=== PATIENT | female | born 1930 | race Caucasian/White ===

== ENCOUNTER 2020-07-01 15:03 | Outpatient (CLI) | payer MEDICARE, BC, OTHER | END 2020-07-01 15:04 | disposition critical access hospital (66) | LOC: EMS 15:03 | PROVIDERS: ATTEND Surgery | DX: M25.552 Pain in left hip (principal); R51 Headache; W18.30XA Fall on same level, unspecified, initial encounter; Y92.512 Supermarket, store or market as the place of occurrence of the external cause; R00.1 Bradycardia, unspecified; Z79.01 Long term (current) use of anticoagulants | CPT/HCPCS: A0425; A0427 ==

== ENCOUNTER 2020-07-01 15:20 | Inpatient (IN) | payer MEDICARE, BC, OTHER ==
[2020-07-01] MEDS ORDERED: SODIUM CHLORIDE 0.9% 1,000 ML IV STA (15:31)
--- NOTE | 2020-07-01 15:34 | ED Physician Documentation ---
PD HPI Fall - Stated complaint Stated Complaint: GLF - History obtained from History obtained from: Patient, EMS - History of Present Illness Mechanism of injury: Lost balance, Unknown (she states she was at grocery store and went to the bathroom. Remembers falling back/left and landing onto hip. Struck head but no LOC. She states she felt okay prior without headache, chest pain, lightheaded, nor nausea.) Fall distance: Standing position Where injury occurred: Other (grocery store) Timing - onset: Today (just [employer]) Injury(ies) location: Back (mid thoracic area with some pain), Left Lower Extremity (knee and hip hurt, mostly the hip, with any movement.). No: Head, Neck, Chest, Abdomen Associated symptoms: No: LOC, AMS Worsens with: Movement, Palpation Contributing factors: Anticoagulated. 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 ) Respiratory: None Neuro: None Endocrine/Autoimmune: None - Allergies Allergies/Adverse Reactions: Allergies Allergy/AdvReac Type Severity Reaction Status Date / Time No Known Drug Allergies Allergy Verified 07/01/20 15:30 - Living Situation Living Situation: reports: Alone Living Arrangement: reports: At home - Social History Does the pt smoke?: No Does the pt drink ETOH?: No Does the pt have substance abuse?: No - POLST POLST Status: Full Code PD ED PE NORMAL - Vitals Vital signs reviewed: Yes - General General: Alert and oriented X 3, Well developed/nourished, Other (hurts with attempt movement of left hip. ) - HEENT HEENT: Atraumatic, Pharynx benign - Neck Neck: Supple, no meningeal sign, No bony TTP, No adenopathy - Cardiac Cardiac: RRR, No murmur - Respiratory Respiratory: Clear bilaterally - Abdomen Abdomen: Normal bowel sounds, Soft, Non tender - Back Back: No CVA TTP, Other (some tenderness in mid thoracic area without deformityh.) - Derm Derm: Normal color, Warm and dry - Extremities Extremities: No tenderness to palpate, Normal ROM s pain - Neuro Neuro: Alert and oriented X 3, No motor deficit, Other (left knee with some tenderness anteriorly. No effusion nor deformity. Left hip with tenderness to palpation, and pain with any slight movement of the hip and with slight impaction testing. ) Eye Opening: Spontaneous Motor: Obeys Commands Verbal: Oriented GCS Score: 15 - Psych Psych: Normal mood Results - Vitals Vitals: Vital Signs - 24 hr 07/01/20 07/01/20 07/01/20 15:30 15:34 16:29 Temperature 36.6 C Heart Rate 50 L 45 L 50 L Respiratory 18 18 13 Rate Blood Pressure 115/63 118/72 123/78 O2 Saturation 94 95 95 Oxygen O2 Source Room air - EKG (time done) 16:20 Rate: Rate (enter#) (49) Rhythm: Sinus bradycardia [place]: Normal QRS: Normal Ischemia: Normal ST segments, Non specific changes (laterally). No: ST elevation c/w ischemia, ST depression Compare to prior EKG: Old EKG unavailable - Labs Labs: Laboratory Tests 07/01/20 07/01/20 07/01/20 15:36 15:36 15:36 WBC 6.7 RBC 4.68 Hgb 13.9 Hct 43.4 MCV 92.7 MCH 29.7 MCHC 32.0 RDW 12.9 Plt Count 153 MPV 10.1 Neut # (Auto) 4.5 Lymph # (Auto) 1.5 [place] # (Auto) 0.5 Eos # (Auto) 0.1 Baso # (Auto) 0.0 Absolute Nucleated RBC 0.00 Nucleated RBC % 0.0 PT 43.9 H INR 4.3 H Sodium 134 L Potassium 4.6 Chloride 101 Carbon Dioxide 22 Anion Gap 11.0 BUN 22 H Creatinine 1.2 H Estimated GFR (MDRD) 42 L Glucose 140 H Calcium 9.0 Magnesium 2.3 Total Bilirubin 0.9 AST 33 ALT 28 Alkaline Phosphatase 94 Troponin I High Sens Total Protein 7.3 Albumin 4.4 Globulin 2.9 Albumin/Globulin Ratio 1.5 Lipase 21 L Blood Type Recheck 07/01/20 07/01/20 15:36 15:36 WBC RBC Hgb Hct MCV MCH MCHC RDW Plt Count MPV Neut # (Auto) Lymph # (Auto) [place] # (Auto) Eos # (Auto) Baso # (Auto) Absolute Nucleated RBC Nucleated RBC % PT INR Sodium Potassium Chloride Carbon Dioxide Anion Gap BUN Creatinine Estimated GFR (MDRD) Glucose Calcium Magnesium Total Bilirubin AST ALT Alkaline Phosphatase Troponin I High Sens 3.1 Total Protein Albumin Globulin Albumin/Globulin Ratio Lipase Blood Type Recheck O NEGATIVE - Rads (name of study) head CT Radiology: Prelim report reviewed (no ICH nor acute process), See rad report cervical and thoracic spine Radiology: Prelim report reviewed (no fractures), See rad report left knee xray Radiology: Prelim report reviewed (no fractures) left hip Radiology: Prelim report reviewed (slightly angulated and impacted intertrochanteric hip fracture. ), See rad report PD MEDICAL DECISION MAKING - ED course Complexity details: reviewed results, considered differential (sounds like fall without preceeding symptoms, but still not clear the reason. HR slow but not sure of baseline. BP is okay. Cannot test posturals due to hip fracture. ), d/w patient, d/w hospice care consultant (Ortho and hospitalist) Departure - Departure Disposition: 66 [facility] DC/Xfer Clinical Impression: Anticoagulant long-term use Fall Qualifiers: Encounter type: initial encounter Qualified Code(s): W19.XXXA - Unspecified fall, initial encounter Hip fracture Qualifiers: Encounter type: initial encounter Fracture type: closed Laterality: left Qualified Code(s): S72.002A - Fracture of unspecified part of neck of left femur, initial encounter for closed fracture Condition: Stable Discharge Date/Time: 07/01/20 18:03
[2020-07-01 15:43] LABS: BASOPHILS % (AUTO) 0.6 %; EOSINOPHILS # (AUTO) 0.1 10^3/uL (0.0-0.7); EOSINOPHILS % (AUTO) 1.9 %; HGB - HEMOGLOBIN 13.9 g/dL (12.0-16.0); LYMPHOCYTES # (AUTO) 1.5 10^3/uL (1.5-3.5); LYMPHOCYTES % (AUTO) 21.7 %; MEAN CORPUSCULAR HEMOGLOBIN 29.7 pg (27.0-31.0); MEAN CORPUSCULAR VOLUME 92.7 fL (81.0-99.0); MEAN PLATELET VOLUME 10.1 fL (7.9-10.8); MONOCYTES # (AUTO) 0.5 10^3/uL (0.0-1.0); MONOCYTES % (AUTO) 7.6 %; NEUTROPHILS # (AUTO) 4.5 10^3/uL (1.5-6.6); NEUTROPHILS % (AUTO) 67.6 %; PLT - PLATELET COUNT 153 10^3/uL (130-450); RED BLOOD COUNT 4.68 10^6/uL (4.20-5.40); RED CELL DISTRIBUTION WIDTH 12.9 % (12.0-15.0); WHITE BLOOD COUNT 6.7 x10^3/uL (4.8-10.8)
[2020-07-01] MEDS ORDERED: MORPHINE 2 MG/ML CARPUJECT IVP STA (15:50)
[2020-07-01 15:52] LABS: INR 4.3 (0.8-1.2); PT - PROTHROMBIN TIME 43.9 secs (9.9-12.6)
[2020-07-01 15:55] LABS: ALBUMIN 4.4 g/dL (3.2-5.5); ALBUMIN/GLOBULIN RATIO 1.5 (1.0-2.2); BILIRUBIN,TOTAL 0.9 mg/dL (0.2-1.0); CREATININE 1.2 mg/dL (0.4-1.0); MAGNESIUM 2.3 mg/dL (1.7-2.8); TOTAL PROTEIN 7.3 g/dL (6.7-8.2)
--- NOTE | 2020-07-01 16:14 | CT Report ---
PROCEDURE: HEAD WO INDICATIONS: fall to ground; pain head/neck; on coumadin TECHNIQUE: Noncontrast 4.5 mm thick angled axial sections acquired from the foramen magnum to the vertex. For r adiation dose reduction, the following was used: automated exposure control, adjustment of mA and/or kV according to patient size. COMPARISON: Correlation is made with the accompanying cervical spine CT and thoracic spine CT. FINDINGS: Image quality: Diagnostic, with note made of motion artifact. CSF spaces: Basal cisterns are patent. No extra-axial fluid collections. Ventricles are normal in size and shape. Brain: No midline shift. No intracranial masses or hemorrhage. Arroyo-white matter interface is norm al. Skull and face: Calvarium and visualized facial bones are intact, without suspicious lesions. Hyper ostosis frontalis is incidentally noted, which is not frankly abnormal for a female patient of this a ge. Sinuses: Visualized sinuses and mastoids are clear. Bilateral faisal bullosa are incidentally noted , right larger than left. IMPRESSION: No intracranial hemorrhage is seen. No significant intracranial abnormality is seen. Reviewed by: Ronnie Johnston MD on 07/01/2020 3:13 PM MACHELLE Approved by: Ronnie Johnston MD on 07/01/2020 3:13 PM MACHELLE Station ID: [id number]
--- NOTE | 2020-07-01 16:17 | CT Report ---
PROCEDURE: CERVICAL SPINE WO INDICATIONS: fall to ground; pain head/neck; on coumadin TECHNIQUE: Noncontrast 3 mm thick sections acquired from the skull base to the T4 level. Sagittal and coronal r eformats were then constructed. For radiation dose reduction, the following was used: automated exp osure control, adjustment of mA and/or kV according to patient size. COMPARISON: Correlation is made with the accompanying head CT and thoracic spine CT, 07/01/2020 FINDINGS: Image quality: Excellent. Bones: No fractures or dislocations. Visualized superior ribs are intact. Degenerative changes are seen, with moderate to severe disc space narrowing at the C5-C6 and C6-C7 le vels. There is focal degenerative change involving the C1-C2 interface anteriorly. Milder degenerativ e changes are seen elsewhere. Age-appropriate osteopenia can be seen. Soft tissues: Prevertebral soft tissues are normal in thickness. No paravertebral hematomas. No ap ical pneumothoraces. Atherosclerotic calcification is seen. Minimal opacity can be seen involving th e medial aspect of the right upper lobe anteriorly. IMPRESSION: No displaced fractures are seen. Cervical spine degenerative changes are seen, which are most prominent inferiorly. Likely right upper lobe atelectasis. Differential diagnosis includes minimal infiltrate, however. Reviewed by: Ronnie Johnston MD on 07/01/2020 3:16 PM MACHELLE Approved by: Ronnie Johnston MD on 07/01/2020 3:16 PM MACHELLE Station ID: [id number]
--- NOTE | 2020-07-01 16:21 | CT Report ---
PROCEDURE: THORACIC SPINE WO INDICATIONS: fall to ground; pain head/neck; on coumadin TECHNIQUE: Noncontrast 3 mm thick sections acquired through the region of interest in the thoracic spine. Sagit mumtaz and coronal reformats were then constructed. For radiation dose reduction, the following was used : automated exposure control, adjustment of mA and/or kV according to patient size. COMPARISON: Correlation is made with the accompanying head CT and cervical spine CT, 07/01/2020. FINDINGS: Image quality: Excellent. Bones: There is accentuated thoracic kyphosis. Mild levoconvex scoliotic curvature is seen. Lowe r cervical spine degenerative changes can be seen. At the T12 level, there is a chronic appearing ant erior wedge deformity, with 70-80% loss of height anteriorly. Partially bridging anterior osteophytes can be seen at the T11-T12 level. Several levels of partially bridging endplate osteophytes can be s een, including on the right at the T4-T5 and T5-T6 levels. No acute vertebral body compression fractu res. No suspicious sclerotic or lytic bony lesions. Central spinal canal is of normal overall calib er. Age-appropriate osteopenia can be seen. Soft tissues: No paravertebral masses or hematomas. Within the right upper lobe anteriorly and medi ally, there is minimal consolidation seen. The visualized lungs otherwise appear clear. IMPRESSION: No acute fracture is seen. Remote T12 anterior wedge deformity. Age-appropriate degenerative changes and osteopenia can be seen. A mild amount of atelectasis can be seen involving the right upper lobe medially and anteriorly. Diff erential diagnosis includes a small amount of infiltrate, however. Reviewed by: Ronnie Johnston MD on 07/01/2020 3:20 PM [email or web address] Approved by: Ronnie Johnston MD on 07/01/2020 3:20 PM AKDT Station ID: [id number]
--- NOTE | 2020-07-01 16:45 | XRAY Report ---
PROCEDURE: Hip w/Pelvis 2-3V LT INDICATIONS: fall with pain left hip/knee TECHNIQUE: AP pelvis with lateral view(s) of the left hip(s). COMPARISON: Correlation is made with the accompanying knee plain films 07/01/2020 FINDINGS: Bones: There is a moderately displaced, comminuted, impacted fracture of the intertrochanteric left f emoral neck. No definite dislocation can be seen. To the limits of these plain films, pelvic ring fracture can be seen. Note is made of age-appropriate degenerative change of the lower lumbar spine. No suspicious lytic or blastic lesions are seen. Age-appropriate osteopenia can be seen. Soft tissues: The visualized bowel gas pattern is normal. No suspicious soft tissue calcifications. IMPRESSION: Impacted, angulated, comminuted fracture of the intertrochanteric left femoral neck. Reviewed by: Ronnie Johnston MD on 07/01/2020 3:44 PM MACHELLE Approved by: Ronnie Johnston MD on 07/01/2020 3:44 PM MACHELLE Station ID: [id number]
--- NOTE | 2020-07-01 16:46 | XRAY Report ---
PROCEDURE: Knee 2 View LT INDICATIONS: fall with pain left hip/knee TECHNIQUE: 2 views of the left knee(s) were acquired. COMPARISON: Correlation is made with the hip plain films, 07/01/2020 FINDINGS: Bones: No fractures or dislocations. No suspicious bony lesions. Age-appropriate degenerative omnsalve ges are seen. Soft tissues: No joint effusion. No suspicious soft tissue calcifications. IMPRESSION: Degenerative changes, without an acute bony abnormality seen by plain film. Reviewed by: Ronnie Johnston MD on 07/01/2020 3:44 PM AKDT Approved by: Ronnie Johnston MD on 07/01/2020 3:44 PM AKDT Station ID: [id number]
[2020-07-01] MEDS ORDERED: ONDANSETRON ODT 4 MG TABLET TL PRN (16:54)
[2020-07-01] MEDS ORDERED: ONDANSETRON 4 MG/2 ML VIAL IVP PRN (16:54)
[2020-07-01] MEDS ORDERED: CHERRY SYRUP 10 ML UDC PO ONE (16:58)
[2020-07-01] MEDS ORDERED: HYDROmorphone 1 MG/ML CARPUJECT IVP STA (16:58)
[2020-07-01] MEDS ORDERED: PHYTONADIONE 10 MG/ML AMP PO ONE (16:58)
--- NOTE | 2020-07-01 17:03 | HISTORY & PHYSICAL EXAMINATION ---
Chief Complaint - Chief Complaint Chief Complaint: Fall History of Present Illness - Admitted From Admitted From:: Home - History Obtained From Records Reviewed: Yes History obtained from: Patient, ER Physician, EMR Exam Limitations: Patient is a little lethargic after receiving morphine. 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 History is limited as the patient is a little dazed after receiving morphine in the emergency department. She states she was at the grocery store today holding a cart when she fell. She cannot re ally recall what happened but she denied any loss of consciousness or syncope. She denied feeling dizzy or lightheaded or any palpitations prior to the event. She states that she lives alone and is independent with her ADLs. She normally will use a cane to ambulate. She still drives. She denies any prior history of heart disease including arrhythmias, heart failure, coronary artery disease. 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 She currently complains of pain at the left hip. She denies any numbness in her lower extremities. Reports no nausea or vomiting. Denies abdominal pain, dysuria, urgency, hematuria. She denies a history of renal disease, diabetes, hypertension. She is unable to tell me what medications she takes except for the warfarin. She initially told me that she does not have any chest pain including with exertion. I asked her if she gets chest pain when she walks a flight of stairs and she initially said no. Later she stated that she will occasionally get chest pain always not very often. She reports last episode was a few days ago when she was just sitting around. She could not tell me if it was sharp or pressure-like in nature. She currently reports no chest pain. She also reports no dyspnea. She reports no lower extremity edema. In the emergency department, she is found to be afebrile temperature of 36.6 C. Her heart rate was in the 50s and this was sinus bradycardia on telemetry. Her blood pressure is 115/63. She was not tachypneic and saturating well on room air. Her labs were significant for an INR of 4.3. Her creatinine was slightly elevated at 1.2. Her troponin was within normal limits. Her EKG showed a sinus bradycardia left anterior fascicular block. No prior EKG to compare to. She underwent imaging which was significant for a left femoral neck fracture. Given the above findings, medicine was consulted for admission. I did discuss goals of care with the patient and she would like to be a full code. History - Past Medical History Cardiovascular: denies: Congestive heart failure, Hypertension, Coronary artery disease, Arrhythmia Respiratory: reports: None Neuro: reports: Migraines Endocrine/Autoimmune: reports: None GI: reports: Other (Reported history of mesenteric ischemia with thrombus on Coumadin) HOSPICE CLINICAL MANAGER: reports: None : reports: None HEENT: reports: None Psych: reports: None Musculoskeletal: reports: None Derm: reports: None MRSA Hx?: No - Family & Social History Family History Comment/Other: She reports that her parents were healthy. Denies any family history. Living arrangement: At home Living Situation: Alone Social History Notes: She reports living at home alone. She was a previous smoker but quit many years ago. She drinks wine on a daily basis. She is independent with her ADLs. She is . Meds/Allgy - Allergies Allergies/Adverse Reactions: Allergies Allergy/AdvReac Type Severity Reaction Status Date / Time No Known Drug Allergies Allergy Verified 07/01/20 15:30 Review of Systems - Constitutional Constitutional: denies: Fatigue, Fever, Weakness - Cardiovascular Cariovascular: denies: Palpitations, Chest pain, Edema, Lightheadedness, Syncope, Exertional dyspnea, Decr. exercise tolerance - Respiratory Respiratory: denies: Cough - Gastrointestinal Gastrointestinal: denies: Abdominal pain, Nausea, Vomiting - Genitourinary Genitourinary: denies: Dysuria, Frequency, Hematuria - Musculoskeletal Musculoskeletal: reports: Limited range of motion, Joint pain - Integumentary Integumentary: denies: Rash - Neurological Neurological: denies: General weakness, Focal weakness, Dizziness, Numbness - Hematologic/Lymphatic Hematologic/Lymphatic: denies: Anemia, Bleeding tendencies - All Other Systems All Other Systems: reports: Reviewed and negative Prior Level of Functionality: She is independent with her ADL's. Exam - Vital Signs Reviewed Vital Signs: Yes Vital Signs: Vital Signs x48h Temp Pulse Resp BP Pulse Ox 07/01/20 16:29 50 L 13 123/78 95 07/01/20 15:34 45 L 18 118/72 95 07/01/20 15:30 36.6 C 50 L 18 115/63 94 - Physical Exam General Appearance: positive: No acute distress, Other (He appears comfortable in bed. She is alert but slightly lethargic. Will occasionally doze off but then will wake up and answer questions although it will take a little time to an swer.) Eyes Bilateral: positive: Normal inspection ENT: positive: ENT inspection nml Neck: positive: Nml inspection Respiratory: positive: No respiratory distress, Other (Diminished breath sounds throghout). negative: Wheezes, Rales Cardiovascular: positive: No murmur. negative: Irregularly irregular, Tachycardia, Systolic murmur Abdomen: positive: Non-tender, No distention. negative: Tenderness, Guarding, Rebound Skin: positive: Warm, Dry Extremities: positive: No pedal edema, Other (Left lower extremity is externally rotated. Distal pulses are intact. Sensation is also intact.) Neurologic/Psychiatric: negative: Disoriented to person, Disoriented to place Conclusion/Plan - Problem List (1) Closed left hip fracture Conclusion/Plan: This is after what appears to be a mechanical fall. She is ready been evaluated by orthopedics. We will make her n.p.o. at midnight for intervention tomorrow. Pain control with oxycodone and morphine as needed. We will lower the dose of morphine to 2 mg as she is slightly lethargic after receiving 4 mg in the emergency department. Consult PT and OT postoperatively. Social work consult for disposition planning. (2) Pre-op examination Conclusion/Plan: She denies a history of coronary artery disease, heart failure, arrhythmia, renal disease, diabetes. She knows she denied any angina with exertion but later stated she does develop chest pain with the last episode being a few days ago. She reports this is not a common thing for her. It is unclear how accurate of a historian she is as she does appear little lethargic after receiving morphine. Nonetheless, given her history of mesenteric ischemia and thrombus and her age, she likely does have coronary artery disease. Her current EKG does not suggest ischemia and her initial troponin is negative. It is unclear if her chest pain is due to myocardial ischemia or not. Assuming it is, her Revised cardiac risk index for preoperative risk puts her at class II risk which is approximately 6% risk of a perioperative cardiac event. Will recommend trending her troponin. We will attempt to obtain a more thorough history once the morphine wears to hopefully should be a more reliable historian then to truly assess this occasional chest pain. If this chest pain truly is confirmed, I do not think she will need further work-up either way given her age and the fact that she needs this left hip repaired. Would recommend proceeding with valentino rgical intervention as long as the patient knows the potential risks/benefits. (3) Anticoagulant long-term use Conclusion/Plan: She is on Coumadin for history of mesenteric ischemia and thrombus. Her INR is elevated at 4.3. We will give her vitamin K 5 mg now and recheck an INR in the morning. If it is still elevated we will give FFP. I spoke with orthopedic surgery and they would like an INR closer to 1.5. (4) Fall Conclusion/Plan: This appears to be mechanical fall by history but will need to rule out syncope she given she is bradycardic on telemetry. We will check orthostatics. Obtain echocardiogram. Trend troponin. Monitor on telemetry. Qualifiers: Encounter type: initial encounter Qualified Code(s): W19.XXXA - Unspecified fall, initial encounter (5) Bradycardia Conclusion/Plan: She has sinus bradycardia with a left anterior fascicular block on EKG. She is normotensive. Unclear if she may have had an arrhythmia which caused her to fall from the history although this appears to be less likely. We will monitor on telemetry and check a TSH. We will also obtain echocardiogram. - Lab Results Lab results reviewed: Yes Fish Bones: 07/01/20 15:36 07/01/20 15:36 - Diagnostic Imaging Results Diagnostic Imaging Results: positive: Final report reviewed - EKG Results EKG Interpreted Independently: Yes EKG Comparison: No prior EKG EKG Findings: EKG shows sinus bradycardia with a left anterior fascicular block. No ischemic changes. No prior EKG to compare to. Core Measures - Anticipated LOS I expect patient to be DC'd or transferred within 96 hours.: Yes - Issues Hospital Issues and Management Plan: 89-year-old female with a left hip fracture after a mechanical fall. Will be admitted for orthopedic intervention and pain control. Will require PT and OT postoperatively. - DVT/VTE - Prophylaxis VTE/DVT Device ordered at admit?: Yes VTE/DVT Prophylaxis med ordered at admit?: No
[2020-07-01 17:50] LABS: BILIRUBIN,URINE SMALL (NEGATIVE); GLUCOSE, URINE (UA) NEGATIVE (NEGATIVE); KETONES,URINE (UA) TRACE mg/dL (NEGATIVE); LEUKOCYTE ESTERASE, URINE NEGATIVE (NEGATIVE); NITRITE,URINE NEGATIVE (NEGATIVE); OCCULT BLOOD,URINE LARGE (NEGATIVE); PH,URINE 5.5 PH (5.0-7.5); PROTEIN,URINE NEGATIVE (NEGATIVE); UROBILINOGEN,URINE 1 (NORMAL) E.U./dL (NORMAL)
[2020-07-01 17:53] LABS: CLARITY,URINE CLEAR (CLEAR)
--- NOTE | 2020-07-01 17:54 | CONSULTATION NOTE ---
Referring Provider Name of Referring Provider:: Dr. Patterson Consult Date: 07/01/20 Chief Complaint - Chief Complaint Chief Complaint: pain left hip and thigh History of Present Illness - History Obtained From History obtained from: patient - History of Present Illness HPI Comment/Other: This is an 89-year-old woman who presents to the emergency room with a chief complaint of pain to the left thigh and hip and inability to bear weight following a [facility] that [facility] [place] [facility] [place] Following the fall she was brought to the emergency room here. She was using a shopping cart when she fell. She is not certain why she fell, her legs just seem to give out. She denies chest pain, shortness of breath, syncope, dizziness, lightheadedness or loss of consciousness associated with the fall. She has no other pain other than the left upper thigh and hip region. She denies previous fractures. She denies previous problems with her left hip. She is a community ambulator and uses a cane off and on. She is a , lives alone and is independent in activities of daily living. She is on Coumadin. 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 She denies history of myocardial infarction, stroke, diabetes or blood clots to her legs in the past. She has had no cancer other than skin cancer to her face. History - Past Medical History Cardiovascular: reports: Other Respiratory: reports: None Neuro: reports: Migraines Endocrine/Autoimmune: reports: None GI: reports: None COMMERCIAL REPORTER: reports: None : reports: None HEENT: reports: None Psych: reports: None Musculoskeletal: reports: None Derm: reports: None MRSA Hx?: No Other Past Medical History: pt states she had "a clot in her abdomen" Meds/Allgy - Allergies Allergies/Adverse Reactions: Allergies Allergy/AdvReac Type Severity Reaction Status Date / Time No Known Drug Allergies Allergy Verified 07/01/20 15:30 Exam - Vital Signs Vital Signs: Vital Signs x48h Temp Pulse Resp BP Pulse Ox 07/01/20 17:00 48 L 15 123/80 95 07/01/20 16:29 50 L 13 123/78 95 07/01/20 15:34 45 L 18 118/72 95 07/01/20 15:30 36.6 C 50 L 18 115/63 94 - Physical Exam General Appearance: positive: Mild distress. negative: Other (She is not fully alert but does answer questions appropriately. She is partially sedated from previous morphine and analgesics.) Eyes Bilateral: positive: Normal inspection Neck: positive: Nml inspection Respiratory: positive: No respiratory distress Cardiovascular: positive: Regular rate & rhythm, Bradycardia Peripheral Pulses: positive: 2+ Abdomen: positive: Non-tender Extremities: negative: Other (Upper extremities and right lower extremities do not show any abnormality. Left leg is shortened, externally rotated and painful with very limited movement to left hip. There is no thigh hematoma.) Neurologic/Psychiatric: positive: Oriented x3, Motor nml, Sensation nml Conclusion and Plan - Lab Results Laboratory Results 07/01/20 15:36: Troponin I High Sens 3.1 07/01/20 15:36: Sodium 134 L, Potassium 4.6, Chloride 101, Carbon Dioxide 22, Anion Gap 11.0, BUN 22 H, Creatinine 1.2 H, Estimated GFR (MDRD) 42 L, Glucose 140 H, Calcium 9.0, Magnesium 2.3, Total Bilirubin 0.9, AST 33, ALT 28, Alkaline Phosphatase 94, Total Protein 7.3, Albumin 4.4, Globulin 2.9, Albumin/Globulin Ratio 1.5, Lipase 21 L 07/01/20 15:36: PT 43.9 H, INR 4.3 H 07/01/20 15:36: WBC 6.7, RBC 4.68, Hgb 13.9, Hct 43.4, MCV 92.7, MCH 29.7, MCHC 32.0, RDW 12.9, Plt Count 153, MPV 10.1, Neut # (Auto) 4.5, Lymph # (Auto) 1.5, [place] # (Auto) 0.5, Eos # (Auto) 0.1, Baso # (Auto) 0.0, Absolute Nucleated RBC 0.00, Nucleated RBC % 0.0 - Diagnostic Imaging Results Diagnostic Imaging Results: negative: Read independently (Displaced intertrochanteric fracture left hip) - Diagnosis Diagnosis: Displaced intertrochanteric fracture left hip. Obesity. Coumadin anticoagulation with high INR. Sinus bradycardia - Plan Plan: I have recommended open reduction internal fixation intertrochanteric fracture left hip pending reversal of Coumadin and medical evaluation. This is a fracture with high risk no matter how it is treated with or without surgery.Generally, more favorable results are achieved with surgical treatment and that is what she prefers as she is ambulatory and wants to maintain independence with activities of daily living. I have discussed the risk, goals and likelihood of achieving goals, alternatives, disability and . I have encouraged questions. If her INR can be reversed, the tentative plan is to perform her surgery tomorrow. She will be admitted to the hospitalist and will have comanage care with medicine and orthopedics.
[2020-07-01 17:57] LABS: BACTERIA,URINE None Seen /HPF (None Seen); MUCUS,URINE Moderate Strands; SQUAMOUS EPITHELIAL CELL,UR MOD Squamous (<= Few)
[2020-07-01] MEDS: SODIUM CHLORIDE FLUSH 0.9% 10 ML SYRINGE IVP SCH ×2 (19:38→23:57)
[2020-07-01] MEDS: ACETAMINOPHEN 325 MG TABLET PO PRN (21:14)
[2020-07-01] MEDS: oxyCODONE 5 MG TABLET PO PRN (23:56)
[2020-07-02] MEDS: MORPHINE 2 MG/ML CARPUJECT IVP PRN ×5 (01:06→17:52)
[2020-07-02] MEDS: SODIUM CHLORIDE FLUSH 0.9% 10 ML SYRINGE IVP PRN ×3 (01:07→17:53)
[2020-07-02] MEDS: SODIUM CHLORIDE FLUSH 0.9% 10 ML SYRINGE IVP SCH ×2 (04:02→15:40)
[2020-07-02] MEDS: oxyCODONE 5 MG TABLET PO PRN ×4 (04:58→19:21)
[2020-07-02] MEDS: ACETAMINOPHEN 325 MG TABLET PO PRN ×4 (04:58→19:20)
[2020-07-02 05:07] LABS: BASOPHILS % (AUTO) 0.2 %; EOSINOPHILS % (AUTO) 0.2 %; LYMPHOCYTES # (AUTO) 1.4 10^3/uL (1.5-3.5); LYMPHOCYTES % (AUTO) 16.6 %; MEAN CORPUSCULAR HEMOGLOBIN 30.1 pg (27.0-31.0); MEAN CORPUSCULAR HGB CONC 32.3 g/dL (32.0-36.0); MEAN CORPUSCULAR VOLUME 93.2 fL (81.0-99.0); MEAN PLATELET VOLUME 10.2 fL (7.9-10.8); MONOCYTES # (AUTO) 0.9 10^3/uL (0.0-1.0); MONOCYTES % (AUTO) 10.3 %; NEUTROPHILS # (AUTO) 6.3 10^3/uL (1.5-6.6); NEUTROPHILS % (AUTO) 72.5 %; PLT - PLATELET COUNT 140 10^3/uL (130-450); RED BLOOD COUNT 3.99 10^6/uL (4.20-5.40); WHITE BLOOD COUNT 8.7 x10^3/uL (4.8-10.8)
[2020-07-02 05:09] LABS: PT - PROTHROMBIN TIME 55.5 secs (9.9-12.6)
[2020-07-02 05:18] LABS: CALCIUM 8.7 mg/dL (8.5-10.3); CREATININE 1.1 mg/dL (0.4-1.0); MAGNESIUM 2.2 mg/dL (1.7-2.8); PHOSPHORUS 3.6 mg/dL (2.5-4.6)
[2020-07-02 05:39] LABS: INR 5.6 (0.8-1.2)
[2020-07-02] MEDS ORDERED: PHYTONADIONE 10 MG/ML AMP PO ONE (07:59)
[2020-07-02] MEDS ORDERED: CHERRY SYRUP 10 ML UDC PO ONE ×2 (07:59→09:00)
--- NOTE | 2020-07-02 11:05 | PHARMACY PROGRESS NOTE ---
- Best Possible Medication History Admit Date and Time: 07/01/20 1649 Processed by: Pharmacy Medication History completed: Yes Patient Interview: Completed Secondary Source(s): Pharmacy records (PATIENT INTERVIEWED BY BANK WORKER. PATIENT ABLE TO CONFIRM MEDICATIONS. ALSO CALLED PHARMACY [facility]), Insurance records As the person ultimately responsible for medication therapy, providers are able to order a medication from an existing home medication list in [facility] via the "Reconcile Routine" prior to Confirmation of that medication by practice support specialist. Such practice is discouraged except when the physician, in their clinical judgment, deems that a medical need exists for a medication without regard to previous use.
--- NOTE | 2020-07-02 11:21 | PROVIDER PROGRESS NOTE ---
Assessment/Plan - Problem List (1) Closed left hip fracture Assessment/Plan: The fracture occurred after what appeared to be a mechanical fall. She has already been evaluated by orthopedics. She reported episodes of chest pain at admission. Her current EKG does not suggest ischemia and her initial troponin is negative. It is unclear if her chest pain is due to myocardial ischemia or not. Assuming it is, her Revised cardiac risk index for preoperative risk puts her at class II risk which is approximately 6% risk of a perioperative cardiac event. She woluld likely not get further cardiac work-up given her age and the current left hip fracture. Would recommend proceeding with surgical intervention as long as the patient knows the potential increased risks/benefits. If her INR would be under 1.8, Dr Quiroz of Orthopedics will operate on her later today>>> the noon INR was 2.9. her hip surgery will be postponed until tomorrow and she may eat today. Pain control with oxycodone and morphine as needed. We will lower the dose of morphine to 2 mg as she is slightly lethargic after receiving 4 mg in the emergency department. Plan consult PT and OT postoperatively. Social work consult for disposition planning for rehab. (2) Fall Qualifiers: Encounter type: subsequent encounter Qualified Code(s): W19.XXXD - Unspec ified fall, subsequent encounter Assessment/Plan: This appears to be a mechanical fall by history but will need to rule out syncope, given she is bradycardia on telemetry. We will check orthostatics when she can stand. Echocardiogram ordered and is still pending. Troponins were normal. Monitor on telemetry. 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 She is normotensive. Unclear if she may have had an arrhythmia which caused her to fall from the history although this appears to be less likely. A TSH was ordered and is normal at 2.77. Her home med list has been reconciled today by pharmacy and she was taking Nadolol (a Beta-дмитрий) 40 mg twice daily. We will continue monitoring her on telemetry, put hold parameters on Nadolol, but resume the B-дмитрий. An Echocardiogram was ordered, before knowing she was on Nadolol, which may be causing the bradycardia. 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 Her INR was elevated at 4.3. She got oral vitamin K 5 mg and the morning INR is till elevated at 5.8. 2U of FFP were ordered this morning and she refused that, until she spoke to her son. Vitamin K 5 mg was therefore ordered again. When the son arrived, the 2U of FFP were infused late this morning. Dr Patterson spoke with orthopedic surgery yesterday and Ortho would like an INR closer to 1.5. Will check a noon INR, and the plan is for surgery this afternoon>>>: the IN R was 2.9 and no surgery today. Will check an INR tonight and in the morning tomorrow. (5) Anxiety and depression Assessment/Plan: From her reconciled med list, she is on 2 anxiolytics (antidepressants). We will resume these. - Current Meds Current Meds: Current Medications Generic Name Dose Route Start Last Admin Trade Name Freq PRN Reason Stop Dose Admin Acetaminophen 650 mg 07/01/20 16:54 07/02/20 09:30 Tylenol PO 650 mg Q4HR PRN Administration Pain 1 to 4 Morphine Sulfate 2 mg 07/01/20 16:54 07/02/20 08:05 Morphine (Carpuject) IVP 2 mg Q2HR PRN Administration Pain 8 to 10 Oxycodone HCl 5 mg 07/01/20 16:54 07/02/20 09:30 Roxicodone PO 5 mg Q4HR PRN Administration Pain 5 to 7 Sodium Chloride 10 ml 07/01/20 16:49 07/02/20 08:06 Normal Saline Flush 0.9% IVP 10 ml PRN PRN Administration NEEDED PER PROVIDER ORDERS Sodium Chloride 10 ml 07/01/20 17:00 07/02/20 04:02 Normal Saline Flush 0.9% IVP 10 ml 0100,0900,1700 DIONNE Administration - Lab Result Fish Bone Diagrams: 07/02/20 04:50 07/02/20 04:50 - Additional Planning My Orders: My Active Orders 07/02/20 12:00 PT WITH INR [COAG] Timed 07/02/20 14:00 Amitriptyline [Elavil] 25 mg PO TID 07/02/20 21:00 Nadolol [Corgard] 40 mg PO BID 07/03/20 09:00 Citalopram Hydrobromide [Citalopram HBr] 40 mg PO DAILY Subjective - Subjective Patient Reports: Resting Comfortably, Other (Slow and repeatative in her answers (is getting narcotics for pain control).) Objective Vital Signs: Vital Signs - 24 hr 07/01/20 07/01/20 07/01/20 15:30 15:34 16:29 Temperature 36.6 C Heart Rate 50 L 45 L 50 L Heart Rate [ Brachial] Respiratory 18 18 13 Rate Blood Pressure 115/63 118/72 123/78 Blood Pressure [Left Brachial artery] Blood Pressure [Right Brachial artery] O2 Saturation 94 95 95 07/01/20 07/01/20 07/01/20 17:00 17:50 20:27 Temperature 36.8 C 36.7 C Heart Rate 48 L Heart Rate [ 51 L 57 L Brachial] Respiratory 15 16 16 Rate Blood Pressure 123/80 Blood Pressure [Left Brachial artery] Blood Pressure 125/65 125/67 [Right Brachial artery] O2 Saturation 95 92 93 07/02/20 07/02/20 07/02/20 00:00 04:04 08:01 Temperature 36.8 C 36.7 C 36.8 C Heart Rate Heart Rate [ 56 L 56 L 59 L Brachial] Respiratory 18 18 18 Rate Blood Pressure Blood Pressure 133/75 H [Left Brachial artery] Blood Pressure 120/64 115/61 [Right Brachial artery] O2 Saturation 94 96 94 07/02/20 07/02/20 07/02/20 08:20 08:50 09:05 Temperature 36.8 C 37.1 C 37.4 C Heart Rate 58 L 62 58 L Heart Rate [ Brachial] Respiratory 18 12 12 Rate Blood Pressure 117/54 L 134/65 H 131/56 H Blood Pressure [Left Brachial artery] Blood Pressure [Right Brachial artery] O2 Saturation 07/02/20 09:30 Temperature 37.1 C Heart Rate 62 Heart Rate [ Brachial] Respiratory 18 Rate Blood Pressure 121/50 L Blood Pressure [Left Brachial artery] Blood Pressure [Right Brachial artery] O2 Saturation Oxygen O2 Source Room air I&O (Last 24 Hrs): Intake and Output Totals x24h 06/30/20 07/01/20 07/02/20 23:59 23:59 23:59 Intake Total 1082.5 1000 Output Total 75 100 Balance 1007.5 900 General: Alert, Other (Oriented but slow speech) HEENT: Other (dry oral mucosa) Neuro: Alert, Non Focal Cardiovascular: Regular rate Respiratory: No respiratory distress Abdomen: Soft Extremities: No edema - Results Results: Laboratory Results WBC 8.7 x10^3/uL (4.8-10.8) 07/02/20 04:50 RBC 3.99 10^6/uL (4.20-5.40) L 07/02/20 04:50 Hgb 12.0 g/dL (12.0-16.0) 07/02/20 04:50 Hct 37.2 % (37.0-47.0) 07/02/20 04:50 MCV 93.2 fL (81.0-99.0) 07/02/20 04:50 MCH 30.1 pg (27.0-31.0) 07/02/20 04:50 MCHC 32.3 g/dL (32.0-36.0) 07/02/20 04:50 RDW 13.0 % (12.0-15.0) 07/02/20 04:50 Plt Count 140 10^3/uL (130-450) 07/02/20 04:50 MPV 10.2 fL (7.9-10.8) 07/02/20 04:50 Neut # (Auto) 6.3 10^3/uL (1.5-6.6) 07/02/20 04:50 Lymph # (Auto) 1.4 10^3/uL (1.5-3.5) L 07/02/20 04:50 [place] # (Auto) 0.9 10^3/uL (0.0-1.0) 07/02/20 04:50 Eos # (Auto) 0.0 10^3/uL (0.0-0.7) 07/02/20 04:50 Baso # (Auto) 0.0 10^3/uL (0.0-0.1) 07/02/20 04:50 Absolute Nucleated RBC 0.00 x10^3/uL 07/02/20 04:50 Nucleated RBC % 0.0 /100WBC 07/02/20 04:50 PT 55.5 secs (9.9-12.6) H 07/02/20 04:50 INR 5.6 (0.8-1.2) H* 07/02/20 04:50 Sodium 138 mmol/L (135-145) 07/02/20 04:50 Potassium 4.5 mmol/L (3.5-5.0) 07/02/20 04:50 Chloride 105 mmol/L (101-111) 07/02/20 04:50 Carbon Dioxide 23 mmol/L (21-32) 07/02/20 04:50 Anion Gap 10.0 (6-13) 07/02/20 04:50 BUN 29 mg/dL (6-20) H 07/02/20 04:50 Creatinine 1.1 mg/dL (0.4-1.0) H 07/02/20 04:50 Estimated GFR (MDRD) 47 (>89) L 07/02/20 04:50 Glucose 153 mg/dL (70-100) H 07/02/20 04:50 Calcium 8.7 mg/dL (8.5-10.3) 07/02/20 04:50 Phosphorus 3.6 mg/dL (2.5-4.6) 07/02/20 04:50 Magnesium 2.2 mg/dL (1.7-2.8) 07/02/20 04:50 Total Bilirubin 0.9 mg/dL (0.2-1.0) 07/01/20 15:36 AST 33 IU/L (10-42) 07/01/20 15:36 ALT 28 IU/L (10-60) 07/01/20 15:36 Alkaline Phosphatase 94 IU/L (42-121) 07/01/20 15:36 Troponin I High Sens 4.1 ng/L (2.3-14.8) 07/02/20 04:50 Total Protein 7.3 g/dL (6.7-8.2) 07/01/20 15:36 Albumin 4.4 g/dL (3.2-5.5) 07/01/20 15:36 Globulin 2.9 g/dL (2.1-4.2) 07/01/20 15:36 Albumin/Globulin Ratio 1.5 (1.0-2.2) 07/01/20 15:36 Lipase 21 U/L (22-51) L 07/01/20 15:36 TSH 2.77 uIU/mL (0.34-5.60) 07/02/20 04:50 Urine Color DARK YELLOW 07/01/20 17:44 Urine Clarity CLEAR (CLEAR) 07/01/20 17:44 Urine pH 5.5 PH (5.0-7.5) 07/01/20 17:44 Ur Specific [place] >=1.030 (1.002-1.030) H 07/01/20 17:44 Urine Protein NEGATIVE mg/dL (NEGATIVE) 07/01/20 17:44 Urine Glucose (UA) NEGATIVE mg/dL (NEGATIVE) 07/01/20 17:44 Urine Ketones TRACE mg/dL (NEGATIVE) 07/01/20 17:44 Urine Occult Blood LARGE (NEGATIVE) H 07/01/20 17:44 Urine Nitrite NEGATIVE (NEGATIVE) 07/01/20 17:44 Urine Bilirubin SMALL (NEGATIVE) H 07/01/20 17:44 Urine Urobilinogen 1 (NORMAL) E.U./dL (NORMAL) 07/01/20 17:44 Ur Leukocyte Esterase NEGATIVE (NEGATIVE) 07/01/20 17:44 Urine RBC 11-25 /HPF (0-5) H 07/01/20 17:44 Urine WBC 0-3 /HPF (0-5) 07/01/20 17:44 Ur Squamous Epith Cells MOD Squamous (<= Few) H 07/01/20 17:44 Urine Bacteria None Seen /HPF (None Seen) 07/01/20 17:44 Urine Mucus Moderate Strands 07/01/20 17:44 Ur Microscopic Review INDICATED 07/01/20 17:44 Urine Culture Comments NOT INDICATED 07/01/20 17:44 Blood Type O NEGATIVE 07/01/20 17:05 Blood Type Recheck O NEGATIVE 07/01/20 15:36 Antibody Screen NEGATIVE 07/01/20 17:05
[2020-07-02 12:27] LABS: INR 2.9 (0.8-1.2); PT - PROTHROMBIN TIME 30.7 secs (9.9-12.6)
--- NOTE | 2020-07-02 13:00 | PROVIDER PROGRESS NOTE ---
Subjective - General Admit Date: 07/01/20 - Review of Systems All Other Systems: positive: Reviewed and negative - Other Other Information/Narrative: Patient is undergoing preoperativeMedical evaluation and treatment, mainly for elevated INR which despite treatment last night and today currently remains at 2.9. This is unacceptable for surgery in my opinion, therefore, her surgery will be delayed until tomorrow when it will be safer. Both myself and the hospitalist concur on this recommendation.The plan is to do an open reduction internal fixation of her hip fracture on 07/03/2020 Objective - Patient Data Vital Signs: Vital Signs x48h Temp Pulse Pulse Resp BP BP Pulse Ox 07/02/20 12:06 36.9 C 58 L 18 116/68 93 07/02/20 09:30 37.1 C 62 18 121/50 L 07/02/20 09:05 37.4 C 58 L 12 131/56 H 07/02/20 08:50 37.1 C 62 12 134/65 H 07/02/20 08:20 36.8 C 58 L 18 117/54 L 07/02/20 08:01 36.8 C 59 L 18 115/61 94 Weight: Weight 06/30/20 07/01/20 07/02/20 23:59 23:59 23:59 Weight (kg) 86.9 kg Intake & Output: Intake and Output Totals x24h 06/30/20 07/01/20 07/02/20 23:59 23:59 23:59 Intake Total 1082.5 1000 Output Total 75 100 Balance 1007.5 900 - Lab Results Lab Results: 07/02/20 04:50 07/02/20 04:50 Other Lab Results: Lab Results x24hrs 07/02/20 07/02/20 07/02/20 Range/Units 12:15 04:50 04:50 WBC (4.8-10.8) x10^3/uL RBC (4.20-5.40) 10^6/uL Hgb (12.0-16.0) g/dL Hct (37.0-47.0) % MCV (81.0-99.0) fL MCH (27.0-31.0) pg MCHC (32.0-36.0) g/dL RDW (12.0-15.0) % Plt Count (130-450) 10^3/uL MPV (7.9-10.8) fL Neut # (Auto) (1.5-6.6) 10^3/uL Lymph # (Auto) (1.5-3.5) 10^3/uL [place] # (Auto) (0.0-1.0) 10^3/uL Eos # (Auto) (0.0-0.7) 10^3/uL Baso # (Auto) (0.0-0.1) 10^3/uL Absolute Nucleated RBC x10^3/uL Nucleated RBC % /100WBC PT 30.7 H (9.9-12.6) secs INR 2.9 H (0.8-1.2) Sodium (135-145) mmol/L Potassium (3.5-5.0) mmol/L Chloride (101-111) mmol/L Carbon Dioxide (21-32) mmol/L Anion Gap (6-13) BUN (6-20) mg/dL Creatinine (0.4-1.0) mg/dL Estimated GFR (MDRD) (>89) Glucose (70-100) mg/dL Calcium (8.5-10.3) mg/dL Phosphorus (2.5-4.6) mg/dL Magnesium (1.7-2.8) mg/dL Total Bilirubin (0.2-1.0) mg/dL AST (10-42) IU/L ALT (10-60) IU/L Alkaline Phosphatase (42-121) IU/L Troponin I High Sens 4.1 (2.3-14.8) ng/L Total Protein (6.7-8.2) g/dL Albumin (3.2-5.5) g/dL Globulin (2.1-4.2) g/dL Albumin/Globulin Ratio (1.0-2.2) Lipase (22-51) U/L TSH 2.77 (0.34-5.60) uIU/mL Urine Color Urine Clarity (CLEAR) Urine pH (5.0-7.5) PH Ur Specific [place] (1.002-1.030) Urine Protein (NEGATIVE) mg/dL Urine Glucose (UA) (NEGATIVE) mg/dL Urine Ketones (NEGATIVE) mg/dL Urine Occult Blood (NEGATIVE) Urine Nitrite (NEGATIVE) Urine Bilirubin (NEGATIVE) Urine Urobilinogen (NORMAL) E.U./dL Ur Leukocyte Esterase (NEGATIVE) Urine RBC (0-5) /HPF Urine WBC (0-5) /HPF Ur Squamous Epith Cells (<= Few) Urine Bacteria (None Seen) /HPF Urine Mucus Ur Microscopic Review Urine Culture Comments Blood Type Blood Type Recheck Antibody Screen 07/02/20 07/02/20 07/02/20 Range/Units 04:50 04:50 04:50 WBC 8.7 (4.8-10.8) x10^3/uL RBC 3.99 L (4.20-5.40) 10^6/uL Hgb 12.0 (12.0-16.0) g/dL Hct 37.2 (37.0-47.0) % MCV 93.2 (81.0-99.0) fL MCH 30.1 (27.0-31.0) pg MCHC 32.3 (32.0-36.0) g/dL RDW 13.0 (12.0-15.0) % Plt Count 140 (130-450) 10^3/uL MPV 10.2 (7.9-10.8) fL Neut # (Auto) 6.3 (1.5-6.6) 10^3/uL Lymph # (Auto) 1.4 L (1.5-3.5) 10^3/uL [place] # (Auto) 0.9 (0.0-1.0) 10^3/uL Eos # (Auto) 0.0 (0.0-0.7) 10^3/uL Baso # (Auto) 0.0 (0.0-0.1) 10^3/uL Absolute Nucleated RBC 0.00 x10^3/uL Nucleated RBC % 0.0 /100WBC PT 55.5 H (9.9-12.6) secs INR 5.6 H* (0.8-1.2) Sodium 138 (135-145) mmol/L Potassium 4.5 (3.5-5.0) mmol/L Chloride 105 (101-111) mmol/L Carbon Dioxide 23 (21-32) mmol/L Anion Gap 10.0 (6-13) BUN 29 H (6-20) mg/dL Creatinine 1.1 H (0.4-1.0) mg/dL Estimated GFR (MDRD) 47 L (>89) Glucose 153 H (70-100) mg/dL Calcium 8.7 (8.5-10.3) mg/dL Phosphorus 3.6 (2.5-4.6) mg/dL Magnesium 2.2 (1.7-2.8) mg/dL Total Bilirubin (0.2-1.0) mg/dL AST (10-42) IU/L ALT (10-60) IU/L Alkaline Phosphatase (42-121) IU/L Troponin I High Sens (2.3-14.8) ng/L Total Protein (6.7-8.2) g/dL Albumin (3.2-5.5) g/dL Globulin (2.1-4.2) g/dL Albumin/Globulin Ratio (1.0-2.2) Lipase (22-51) U/L TSH (0.34-5.60) uIU/mL Urine Color Urine Clarity (CLEAR) Urine pH (5.0-7.5) PH Ur Specific [place] (1.002-1.030) Urine Protein (NEGATIVE) mg/dL Urine Glucose (UA) (NEGATIVE) mg/dL Urine Ketones (NEGATIVE) mg/dL Urine Occult Blood (NEGATIVE) Urine Nitrite (NEGATIVE) Urine Bilirubin (NEGATIVE) Urine Urobilinogen (NORMAL) E.U./dL Ur Leukocyte Esterase (NEGATIVE) Urine RBC (0-5) /HPF Urine WBC (0-5) /HPF Ur Squamous Epith Cells (<= Few) Urine Bacteria (None Seen) /HPF Urine Mucus Ur Microscopic Review Urine Culture Comments Blood Type Blood Type Recheck Antibody Screen 07/01/20 07/01/20 07/01/20 Range/Units 21:18 17:44 17:05 WBC (4.8-10.8) x10^3/uL RBC (4.20-5.40) 10^6/uL Hgb (12.0-16.0) g/dL Hct (37.0-47.0) % MCV (81.0-99.0) fL MCH (27.0-31.0) pg MCHC (32.0-36.0) g/dL RDW (12.0-15.0) % Plt Count (130-450) 10^3/uL MPV (7.9-10.8) fL Neut # (Auto) (1.5-6.6) 10^3/uL Lymph # (Auto) (1.5-3.5) 10^3/uL [place] # (Auto) (0.0-1.0) 10^3/uL Eos # (Auto) (0.0-0.7) 10^3/uL Baso # (Auto) (0.0-0.1) 10^3/uL Absolute Nucleated RBC x10^3/uL Nucleated RBC % /100WBC PT (9.9-12.6) secs INR (0.8-1.2) Sodium (135-145) mmol/L Potassium (3.5-5.0) mmol/L Chloride (101-111) mmol/L Carbon Dioxide (21-32) mmol/L Anion Gap (6-13) BUN (6-20) mg/dL Creatinine (0.4-1.0) mg/dL Estimated GFR (MDRD) (>89) Glucose (70-100) mg/dL Calcium (8.5-10.3) mg/dL Phosphorus (2.5-4.6) mg/dL Magnesium (1.7-2.8) mg/dL Total Bilirubin (0.2-1.0) mg/dL AST (10-42) IU/L ALT (10-60) IU/L Alkaline Phosphatase (42-121) IU/L Troponin I High Sens 4.7 (2.3-14.8) ng/L Total Protein (6.7-8.2) g/dL Albumin (3.2-5.5) g/dL Globulin (2.1-4.2) g/dL Albumin/Globulin Ratio (1.0-2.2) Lipase (22-51) U/L TSH (0.34-5.60) uIU/mL Urine Color DARK YELLOW Urine Clarity CLEAR (CLEAR) Urine pH 5.5 (5.0-7.5) PH Ur Specific [place] >=1.030 H (1.002-1.030) Urine Protein NEGATIVE (NEGATIVE) mg/dL Urine Glucose (UA) NEGATIVE (NEGATIVE) mg/dL Urine Ketones TRACE (NEGATIVE) mg/dL Urine Occult Blood LARGE H (NEGATIVE) Urine Nitrite NEGATIVE (NEGATIVE) Urine Bilirubin SMALL H (NEGATIVE) Urine Urobilinogen 1 (NORMAL) (NORMAL) E.U./dL Ur Leukocyte Esterase NEGATIVE (NEGATIVE) Urine RBC 11-25 H (0-5) /HPF Urine WBC 0-3 (0-5) /HPF Ur Squamous Epith Cells MOD Squamous H (<= Few) Urine Bacteria None Seen (None Seen) /HPF Urine Mucus Moderate [place] Ur Microscopic Review INDICATED Urine Culture Comments NOT INDICATED Blood Type O NEGATIVE Blood Type Recheck Antibody Screen NEGATIVE 07/01/20 07/01/20 07/01/20 Range/Units 15:36 15:36 15:36 WBC (4.8-10.8) x10^3/uL RBC (4.20-5.40) 10^6/uL Hgb (12.0-16.0) g/dL Hct (37.0-47.0) % MCV (81.0-99.0) fL MCH (27.0-31.0) pg MCHC (32.0-36.0) g/dL RDW (12.0-15.0) % Plt Count (130-450) 10^3/uL MPV (7.9-10.8) fL Neut # (Auto) (1.5-6.6) 10^3/uL Lymph # (Auto) (1.5-3.5) 10^3/uL [place] # (Auto) (0.0-1.0) 10^3/uL Eos # (Auto) (0.0-0.7) 10^3/uL Baso # (Auto) (0.0-0.1) 10^3/uL Absolute Nucleated RBC x10^3/uL Nucleated RBC % /100WBC PT (9.9-12.6) secs INR (0.8-1.2) Sodium 134 L (135-145) mmol/L Potassium 4.6 (3.5-5.0) mmol/L Chloride 101 (101-111) mmol/L Carbon Dioxide 22 (21-32) mmol/L Anion Gap 11.0 (6-13) BUN 22 H (6-20) mg/dL Creatinine 1.2 H (0.4-1.0) mg/dL Estimated GFR (MDRD) 42 L (>89) Glucose 140 H (70-100) mg/dL Calcium 9.0 (8.5-10.3) mg/dL Phosphorus (2.5-4.6) mg/dL Magnesium 2.3 (1.7-2.8) mg/dL Total Bilirubin 0.9 (0.2-1.0) mg/dL AST 33 (10-42) IU/L ALT 28 (10-60) IU/L Alkaline Phosphatase 94 (42-121) IU/L Troponin I High Sens 3.1 (2.3-14.8) ng/L Total Protein 7.3 (6.7-8.2) g/dL Albumin 4.4 (3.2-5.5) g/dL Globulin 2.9 (2.1-4.2) g/dL Albumin/Globulin Ratio 1.5 (1.0-2.2) Lipase 21 L (22-51) U/L TSH (0.34-5.60) uIU/mL Urine Color Urine Clarity (CLEAR) Urine pH (5.0-7.5) PH Ur Specific [place] (1.002-1.030) Urine Protein (NEGATIVE) mg/dL Urine Glucose (UA) (NEGATIVE) mg/dL Urine Ketones (NEGATIVE) mg/dL Urine Occult Blood (NEGATIVE) Urine Nitrite (NEGATIVE) Urine Bilirubin (NEGATIVE) Urine Urobilinogen (NORMAL) E.U./dL Ur Leukocyte Esterase (NEGATIVE) Urine RBC (0-5) /HPF Urine WBC (0-5) /HPF Ur Squamous Epith Cells (<= Few) Urine Bacteria (None Seen) /HPF Urine Mucus Ur Microscopic Review Urine Culture Comments Blood Type Blood Type Recheck O NEGATIVE Antibody Screen 07/01/20 07/01/20 Range/Units 15:36 15:36 WBC 6.7 (4.8-10.8) x10^3/uL RBC 4.68 (4.20-5.40) 10^6/uL Hgb 13.9 (12.0-16.0) g/dL Hct 43.4 (37.0-47.0) % MCV 92.7 (81.0-99.0) fL MCH 29.7 (27.0-31.0) pg MCHC 32.0 (32.0-36.0) g/dL RDW 12.9 (12.0-15.0) % Plt Count 153 (130-450) 10^3/uL MPV 10.1 (7.9-10.8) fL Neut # (Auto) 4.5 (1.5-6.6) 10^3/uL Lymph # (Auto) 1.5 (1.5-3.5) 10^3/uL [place] # (Auto) 0.5 (0.0-1.0) 10^3/uL Eos # (Auto) 0.1 (0.0-0.7) 10^3/uL Baso # (Auto) 0.0 (0.0-0.1) 10^3/uL Absolute Nucleated RBC 0.00 x10^3/uL Nucleated RBC % 0.0 /100WBC PT 43.9 H (9.9-12.6) secs INR 4.3 H (0.8-1.2) Sodium (135-145) mmol/L Potassium (3.5-5.0) mmol/L Chloride (101-111) mmol/L Carbon Dioxide (21-32) mmol/L Anion Gap (6-13) BUN (6-20) mg/dL Creatinine (0.4-1.0) mg/dL Estimated GFR (MDRD) (>89) Glucose (70-100) mg/dL Calcium (8.5-10.3) mg/dL Phosphorus (2.5-4.6) mg/dL Magnesium (1.7-2.8) mg/dL Total Bilirubin (0.2-1.0) mg/dL AST (10-42) IU/L ALT (10-60) IU/L Alkaline Phosphatase (42-121) IU/L Troponin I High Sens (2.3-14.8) ng/L Total Protein (6.7-8.2) g/dL Albumin (3.2-5.5) g/dL Globulin (2.1-4.2) g/dL Albumin/Globulin Ratio (1.0-2.2) Lipase (22-51) U/L TSH (0.34-5.60) uIU/mL Urine Color Urine Clarity (CLEAR) Urine pH (5.0-7.5) PH Ur Specific [place] (1.002-1.030) Urine Protein (NEGATIVE) mg/dL Urine Glucose (UA) (NEGATIVE) mg/dL Urine Ketones (NEGATIVE) mg/dL Urine Occult Blood (NEGATIVE) Urine Nitrite (NEGATIVE) Urine Bilirubin (NEGATIVE) Urine Urobilinogen (NORMAL) E.U./dL Ur Leukocyte Esterase (NEGATIVE) Urine RBC (0-5) /HPF Urine WBC (0-5) /HPF Ur Squamous Epith Cells (<= Few) Urine Bacteria (None Seen) /HPF Urine Mucus Ur Microscopic Review Urine Culture Comments Blood Type Blood Type Recheck Antibody Screen - Current Medications Current Medications: Current Medications Generic Name Dose Route Start Last Admin Trade Name Freq PRN Reason Stop Dose Admin Acetaminophen 650 mg 07/01/20 16:54 07/02/20 09:30 Tylenol PO 650 mg Q4HR PRN Administration Pain 1 to 4 Morphine Sulfate 2 mg 07/01/20 16:54 07/02/20 08:05 Morphine (Carpuject) IVP 2 mg Q2HR PRN Administration Pain 8 to 10 Oxycodone HCl 5 mg 07/01/20 16:54 07/02/20 09:30 Roxicodone PO 5 mg Q4HR PRN Administration Pain 5 to 7 Sodium Chloride 10 ml 07/01/20 16:49 07/02/20 08:06 Normal Saline Flush 0.9% IVP 10 ml PRN PRN Administration NEEDED PER PROVIDER ORDERS Sodium Chloride 10 ml 07/01/20 17:00 07/02/20 04:02 Normal Saline Flush 0.9% IVP 10 ml [id number] DIONNE Administration
[2020-07-02] MEDS: AMITRIPTYLINE 25 MG TABLET PO SCH ×2 (14:51→21:06)
[2020-07-02 18:24] LABS: INR 3.1 (0.8-1.2); PT - PROTHROMBIN TIME 32.5 secs (9.9-12.6)
[2020-07-02] MEDS: nadoloL 20 MG TABLET PO SCH (21:06)
[2020-07-03] MEDS: SODIUM CHLORIDE FLUSH 0.9% 10 ML SYRINGE IVP SCH ×3 (01:50→18:38)
[2020-07-03] MEDS: oxyCODONE 5 MG TABLET PO PRN (04:03)
[2020-07-03 05:37] LABS: BASOPHILS % (AUTO) 0.3 %; EOSINOPHILS # (AUTO) 0.1 10^3/uL (0.0-0.7); EOSINOPHILS % (AUTO) 0.9 %; HGB - HEMOGLOBIN 9.9 g/dL (12.0-16.0); LYMPHOCYTES # (AUTO) 1.2 10^3/uL (1.5-3.5); LYMPHOCYTES % (AUTO) 14.7 %; MEAN CORPUSCULAR HEMOGLOBIN 29.8 pg (27.0-31.0); MEAN CORPUSCULAR VOLUME 93.1 fL (81.0-99.0); MONOCYTES # (AUTO) 0.8 10^3/uL (0.0-1.0); MONOCYTES % (AUTO) 10.2 %; NEUTROPHILS # (AUTO) 5.9 10^3/uL (1.5-6.6); NEUTROPHILS % (AUTO) 73.5 %; PLT - PLATELET COUNT 99 10^3/uL (130-450); RED BLOOD COUNT 3.32 10^6/uL (4.20-5.40); RED CELL DISTRIBUTION WIDTH 13.1 % (12.0-15.0)
[2020-07-03 05:41] LABS: INR 2.7 (0.8-1.2); PT - PROTHROMBIN TIME 27.8 secs (9.9-12.6)
[2020-07-03 05:50] LABS: CALCIUM 8.4 mg/dL (8.5-10.3); MAGNESIUM 2.1 mg/dL (1.7-2.8); PHOSPHORUS 2.2 mg/dL (2.5-4.6)
[2020-07-03] MEDS: AMITRIPTYLINE 25 MG TABLET PO SCH ×3 (06:11→21:29)
[2020-07-03] MEDS ORDERED: PHYTONADIONE 10 MG/ML AMP PO ONE (09:00)
[2020-07-03] MEDS ORDERED: CHERRY SYRUP 10 ML UDC PO ONE (09:00)
[2020-07-03] MEDS: SODIUM CHLORIDE FLUSH 0.9% 10 ML SYRINGE IVP PRN ×2 (09:15→13:21)
[2020-07-03] MEDS: CITALOPRAM HYDROBROMIDE 20 MG TABLET PO SCH (09:29)
[2020-07-03 10:02] LABS: INR 2.2 (0.8-1.2); PT - PROTHROMBIN TIME 23.5 secs (9.9-12.6)
--- NOTE | 2020-07-03 11:53 | ANESTHESIA ---
Pre-Anesthesia VS, & Labs - Diagnosis Diagnosis Displaced intertrochanteric fracture left hip Obesity Coumadin anticoagulation with high INR Sinus bradycardia - Procedure Left Hip nailing Vital Signs: Temp Pulse Resp BP Pulse Ox 38 C H 71 16 137/50 H 93 07/03/20 09:15 07/03/20 09:15 07/03/20 09:15 07/03/20 09:15 07/03/20 09:15 Height 5 ft 6 in Weight (kg) 86.9 kg Body Mass Index 30.9 - NPO >8 hours - Is Patient ?: No - Lab Results Current Lab Results: Laboratory Tests 07/03/20 09:52: PT 23.5 H, INR 2.2 H 07/03/20 07:55: Blood Type O NEGATIVE 07/03/20 05:17: PT 27.8 H, INR 2.7 H 07/03/20 05:17: Sodium 133 L, Potassium 3.9, Chloride 101, Carbon Dioxide 22, Anion Gap 10.0, BUN 27 H, Creatinine 1.0, Estimated GFR (MDRD) 52 L, Glucose 163 H, Calcium 8.4 L, Phosphorus 2.2 L, Magnesium 2.1 07/03/20 05:17: WBC 8.0, RBC 3.32 L, Hgb 9.9 L, Hct 30.9 L, MCV 93.1, MCH 29.8, MCHC 32.0, RDW 13.1, Plt Count 99 L, MPV 10.0, Neut # (Auto) 5.9, Lymph # (Auto) 1.2 L, [place] # (Auto) 0.8, Eos # (Auto) 0.1, Baso # (Auto) 0.0, Absolute Nucleated RBC 0.00, Nucleated RBC % 0.0 07/02/20 18:12: PT 32.5 H, INR 3.1 H 07/02/20 12:15: PT 30.7 H, INR 2.9 H 07/02/20 04:50: TSH 2.77 07/02/20 04:50: Troponin I High Sens 4.1 07/02/20 04:50: Sodium 138, Potassium 4.5, Chloride 105, Carbon Dioxide 23, Anion Gap 10.0, BUN 29 H, Creatinine 1.1 H, Estimated GFR (MDRD) 47 L, Glucose 153 H, Calcium 8.7, Phosphorus 3.6, Magnesium 2.2 07/02/20 04:50: PT 55.5 H, INR 5.6 H* 07/02/20 04:50: WBC 8.7, RBC 3.99 L, Hgb 12.0, Hct 37.2, MCV 93.2, MCH 30.1, MCHC 32.3, RDW 13.0, Plt Count 140, MPV 10.2, Neut # (Auto) 6.3, Lymph # (Auto) 1.4 L, [place] # (Auto) 0.9, Eos # (Auto) 0.0, Baso # (Auto) 0.0, Absolute Nucleated RBC 0.00, Nucleated RBC % 0.0 07/01/20 21:18: Troponin I High Sens 4.7 07/01/20 17:05: Blood Type O NEGATIVE, Antibody Screen NEGATIVE 07/01/20 15:36: Blood Type Recheck O NEGATIVE 07/01/20 15:36: Troponin I High Sens 3.1 07/01/20 15:36: Sodium 134 L, Potassium 4.6, Chloride 101, Carbon Dioxide 22, Anion Gap 11.0, BUN 22 H, Creatinine 1.2 H, Estimated GFR (MDRD) 42 L, Glucose 140 H, Calcium 9.0, Magnesium 2.3, Total Bilirubin 0.9, AST 33, ALT 28, Alkaline Phosphatase 94, Total Protein 7.3, Albumin 4.4, Globulin 2.9, Albumin/Globulin Ratio 1.5, Lipase 21 L 07/01/20 15:36: PT 43.9 H, INR 4.3 H 07/01/20 15:36: WBC 6.7, RBC 4.68, Hgb 13.9, Hct 43.4, MCV 92.7, MCH 29.7, MCHC 32.0, RDW 12.9, Plt Count 153, MPV 10.1, Neut # (Auto) 4.5, Lymph # (Auto) 1.5, [place] # (Auto) 0.5, Eos # (Auto) 0.1, Baso # (Auto) 0.0, Absolute Nucleated RBC 0.00, Nucleated RBC % 0.0 Lab results reviewed: Yes Fish Bones: 07/03/20 05:17 07/03/20 05:17 Home Medications and Allergies Home Medications: Ambulatory Orders Amitriptyline [Elavil] 25 mg PO TID 07/02/20 Citalopram Hydrobromide [Citalopram HBr] 40 mg PO DAILY 07/02/20 Nadolol [Corgard] 40 mg PO BID 07/02/20 Warfarin [Coumadin] 2.5 mg PO .07/02/20 Warfarin [Coumadin] 5 mg PO .Wednesday07/02/20 Active Medications Acetaminophen (Tylenol) 650 mg PO Q4HR PRN PRN Reason: Pain 1 to 4 Last Admin: 07/02/20 19:20 Dose: 650 mg Documented by: Amitriptyline HCl (Elavil) 25 mg PO TID [facility] Last Admin: 07/03/20 06:11 Dose: 25 mg Documented by: Citalopram Hydrobromide (Celexa) 40 mg PO DAILY [facility] Last Admin: 07/03/20 09:29 Dose: Not Given Documented by: Morphine Sulfate (Morphine (Carpuject)) 2 mg IVP Q2HR PRN PRN Reason: Pain 8 to 10 Last Admin: 07/02/20 17:52 Dose: 2 mg Documented by: Nadolol (Corgard) 40 mg PO BID [facility] Last Admin: 07/02/20 21:06 Dose: 40 mg Documented by: Ondansetron HCl (Zofran Inj) 4 mg IVP Q6HR PRN PRN Reason: Nausea / Vomiting Ondansetron HCl (Zofran Odt) 4 mg TL Q6HR PRN PRN Reason: Nausea / Vomiting Oxycodone HCl (Roxicodone) 5 mg PO Q4HR PRN PRN Reason: Pain 5 to 7 Last Admin: 07/03/20 04:03 Dose: 5 mg Documented by: Sodium Chloride (Normal Saline Flush 0.9%) 10 ml IVP PRN PRN PRN Reason: NEEDED PER PROVIDER ORDERS Last Admin: 07/03/20 09:15 Dose: 10 ml Documented by: Sodium Chloride (Normal Saline Flush 0.9%) 10 ml IVP [id number] [facility] Last Admin: 07/03/20 09:30 Dose: Not Given Documented by: Amitriptyline [Elavil] 25 mg PO TID 07/02/20 Citalopram Hydrobromide [Citalopram HBr] 40 mg PO DAILY 07/02/20 Nadolol [Corgard] 40 mg PO BID 07/02/20 Warfarin [Coumadin] 2.5 mg PO .07/02/20 Warfarin [Coumadin] 5 mg PO .Wednesday07/02/20 Allergies/Adverse Reactions: Allergies Allergy/AdvReac Type Severity Reaction Status Date / Time No Known Drug Allergies Allergy Verified 07/01/20 15:30 Anes History & Medical History - Anesthetic History Anesthesia Complications: reports: No previous complications Family history of Anesthesia Complications: Denies Family history of Malignant Hyperthermia: Denies - Medical History Cardiovascular: reports: Other (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) Urinary: reports: None Neuro: reports: None Musculoskeletal: reports: None Endocrine/Autoimmune: reports: None Blood Disorders: reports: None Skin: reports: None Smoking Status: Never smoker Other Past Medical History: pt states she had "a clot in her abdomen" Results - EKG Results EKG Comparison: Reviewed EKG Exam General: Alert, Oriented x3, Cooperative, No acute distress Dental: Dentures full Upper Mouth Openin Fingerbreadth Neck Mobility: Reduced Mallampati classification: II Respiratory: Lungs clear, Normal breath sounds, No respiratory distress, No accessory muscle use Cardiovascular: Regular rate, Normal S1, Normal S2, No murmurs Plan Anesthesia Type: General, Fascia [place] Block Consent for Procedure(s) Verified and Reviewed: Yes Code Status: Attempt Resuscitation ASA classification: 3-Severe systemic disease Is this case an emergency?: No
--- NOTE | 2020-07-03 12:22 | PROVIDER PROGRESS NOTE ---
Subjective - General Admit Date: 07/01/20 - Review of Systems All Other Systems: positive: Reviewed and negative Objective - Patient Data Vital Signs: Vital Signs x48h Temp Pulse Pulse Resp BP BP Pulse Ox 07/03/20 09:15 38 C H 71 71 16 137/50 H 137/50 H 93 07/03/20 09:05 37.6 C H 71 16 137/52 H 07/03/20 08:55 37.6 C H 70 16 135/49 H 07/03/20 08:50 37.5 C 66 66 16 136/54 H 136/54 H 94 07/03/20 07:52 36.7 C 64 22 128/48 L 95 07/03/20 04:41 37.2 C 65 18 137/56 H 96 Weight: Weight 07/01/20 07/02/20 07/03/20 23:59 23:59 23:59 Weight (kg) 86.9 kg Intake & Output: Intake and Output Totals x24h 07/01/20 07/02/20 07/03/20 23:59 23:59 23:59 Intake Total 1082.5 2108 150 Output Total 75 550 350 Balance 1007.5 1558 -200 - Lab Results Lab Results: 07/03/20 05:17 07/03/20 05:17 Other Lab Results: Lab Results x24hrs 07/03/20 07/03/20 07/03/20 Range/Units 09:52 07:55 05:17 WBC (4.8-10.8) x10^3/uL RBC (4.20-5.40) 10^6/uL Hgb (12.0-16.0) g/dL Hct (37.0-47.0) % MCV (81.0-99.0) fL MCH (27.0-31.0) pg MCHC (32.0-36.0) g/dL RDW (12.0-15.0) % Plt Count (130-450) 10^3/uL MPV (7.9-10.8) fL Neut # (Auto) (1.5-6.6) 10^3/uL Lymph # (Auto) (1.5-3.5) 10^3/uL [place] # (Auto) (0.0-1.0) 10^3/uL Eos # (Auto) (0.0-0.7) 10^3/uL Baso # (Auto) (0.0-0.1) 10^3/uL Absolute Nucleated RBC x10^3/uL Nucleated RBC % /100WBC PT 23.5 H 27.8 H (9.9-12.6) secs INR 2.2 H 2.7 H (0.8-1.2) Sodium (135-145) mmol/L Potassium (3.5-5.0) mmol/L Chloride (101-111) mmol/L Carbon Dioxide (21-32) mmol/L Anion Gap (6-13) BUN (6-20) mg/dL Creatinine (0.4-1.0) mg/dL Estimated GFR (MDRD) (>89) Glucose (70-100) mg/dL Calcium (8.5-10.3) mg/dL Phosphorus (2.5-4.6) mg/dL Magnesium (1.7-2.8) mg/dL Blood Type O NEGATIVE 07/03/20 07/03/20 07/02/20 Range/Units 05:17 05:17 18:12 WBC 8.0 (4.8-10.8) x10^3/uL RBC 3.32 L (4.20-5.40) 10^6/uL Hgb 9.9 L (12.0-16.0) g/dL Hct 30.9 L (37.0-47.0) % MCV 93.1 (81.0-99.0) fL MCH 29.8 (27.0-31.0) pg MCHC 32.0 (32.0-36.0) g/dL RDW 13.1 (12.0-15.0) % Plt Count 99 L (130-450) 10^3/uL MPV 10.0 (7.9-10.8) fL Neut # (Auto) 5.9 (1.5-6.6) 10^3/uL Lymph # (Auto) 1.2 L (1.5-3.5) 10^3/uL [place] # (Auto) 0.8 (0.0-1.0) 10^3/uL Eos # (Auto) 0.1 (0.0-0.7) 10^3/uL Baso # (Auto) 0.0 (0.0-0.1) 10^3/uL Absolute Nucleated RBC 0.00 x10^3/uL Nucleated RBC % 0.0 /100WBC PT 32.5 H (9.9-12.6) secs INR 3.1 H (0.8-1.2) Sodium 133 L (135-145) mmol/L Potassium 3.9 (3.5-5.0) mmol/L Chloride 101 (101-111) mmol/L Carbon Dioxide 22 (21-32) mmol/L Anion Gap 10.0 (6-13) BUN 27 H (6-20) mg/dL Creatinine 1.0 (0.4-1.0) mg/dL Estimated GFR (MDRD) 52 L (>89) Glucose 163 H (70-100) mg/dL Calcium 8.4 L (8.5-10.3) mg/dL Phosphorus 2.2 L (2.5-4.6) mg/dL Magnesium 2.1 (1.7-2.8) mg/dL Blood Type 07/02/20 Range/Units 12:15 WBC (4.8-10.8) x10^3/uL RBC (4.20-5.40) 10^6/uL Hgb (12.0-16.0) g/dL Hct (37.0-47.0) % MCV (81.0-99.0) fL MCH (27.0-31.0) pg MCHC (32.0-36.0) g/dL RDW (12.0-15.0) % Plt Count (130-450) 10^3/uL MPV (7.9-10.8) fL Neut # (Auto) (1.5-6.6) 10^3/uL Lymph # (Auto) (1.5-3.5) 10^3/uL [place] # (Auto) (0.0-1.0) 10^3/uL Eos # (Auto) (0.0-0.7) 10^3/uL Baso # (Auto) (0.0-0.1) 10^3/uL Absolute Nucleated RBC x10^3/uL Nucleated RBC % /100WBC PT 30.7 H (9.9-12.6) secs INR 2.9 H (0.8-1.2) Sodium (135-145) mmol/L Potassium (3.5-5.0) mmol/L Chloride (101-111) mmol/L Carbon Dioxide (21-32) mmol/L Anion Gap (6-13) BUN (6-20) mg/dL Creatinine (0.4-1.0) mg/dL Estimated GFR (MDRD) (>89) Glucose (70-100) mg/dL Calcium (8.5-10.3) mg/dL Phosphorus (2.5-4.6) mg/dL Magnesium (1.7-2.8) mg/dL Blood Type - Current Medications Current Medications: Current Medications Generic Name Dose Route Start Last Admin Trade Name Freq PRN Reason Stop Dose Admin Acetaminophen 650 mg 07/01/20 16:54 07/02/20 19:20 Tylenol PO 650 mg Q4HR PRN Administration Pain 1 to 4 Amitriptyline HCl 25 mg 07/02/20 14:00 07/03/20 06:11 Elavil PO 25 mg TID DIONNE Administration Citalopram Hydrobromide 40 mg 07/03/20 09:00 07/03/20 09:29 Celexa PO Not Given DAILY [facility] Morphine Sulfate 2 mg 07/01/20 16:54 07/02/20 17:52 Morphine (Carpuject) IVP 2 mg Q2HR PRN Administration Pain 8 to 10 Nadolol 40 mg 07/02/20 21:00 07/02/20 21:06 Corgard PO 40 mg BID DIONNE Administration Oxycodone HCl 5 mg 07/01/20 16:54 07/03/20 04:03 Roxicodone PO 5 mg Q4HR PRN Administration Pain 5 to 7 Sodium Chloride 10 ml 07/01/20 16:49 07/03/20 09:15 Normal Saline Flush 0.9% IVP 10 ml PRN PRN Administration NEEDED PER PROVIDER ORDERS Sodium Chloride 10 ml 07/01/20 17:00 07/03/20 09:30 Normal Saline Flush 0.9% IVP Not Given 0100,0900,1700 [facility] Impression/Plan - Problem List Problem List: She has a displaced intertrochanteric fracture of the left hip The plan is surgical repair of the fracture with open reduction and internal fixation using intramedullary hip screw. Her surgery has been delayed until her anticoagulation is more safely reversed. We should be able to proceed this afternoon pending further fresh frozen plasma or vitamin K as being ordered by our hospitalist.
[2020-07-03] MEDS: nadoloL 20 MG TABLET PO SCH ×2 (13:21→21:32)
[2020-07-03 14:19] LABS: INR 1.9 (0.8-1.2); PT - PROTHROMBIN TIME 20.1 secs (9.9-12.6)
--- NOTE | 2020-07-03 16:21 | PROVIDER PROGRESS NOTE ---
Assessment/Plan - Problem List (1) Fever Assessment/Plan: Patient has a temperature most of the afternoon, spiked as high as 38.6, when the fever was brought to my attention by here RN. This was before going to surgery for the hip repair. Will order stat urinalysis to eval for a UTI, blood cultures x2 stat, and chest x-ray stat to evaluate for atelectasis or pneumonia. Patient will get routine perioperative antibiotics to be ordered by the Orthopedist. The RN told the surgical endoscopist, who told Dr. Nolasco about the fever before taking her to the OR, and the Orthopod did not cancel her surgery. (2) Closed left hip fracture Assessment/Plan: There have been delays for nearly 2 days and getting her to surgery for repair, because of very elevated INR. She has received vitamin K and several units of FFP in order to reverse the INR. Is for surgery to the left hip, then pain control and rehab (3) Fall Qualifiers: Encounter type: subsequent encounter Qualified Code(s): W19.XXXD - Unspecified fall, subsequent encounter Assessment/Plan: Patient still does not remember details of how she fell. She was shopping at [employer]. Since she has poor memory of this, there is concerned that she did have full syncope with a fall. Orthostatic vital signs were ordered but cannot be done until she is able to be out of bed and moving, until the fracture of the hip has had surgery. Telemetry has shown no dysrhythmias that are concerning. (4) Bradycardia Assessment/Plan: Hr was in the 50's yesterday. Patient took Nadolol at home. Nadolol was ordered to give here, with holding parameters because of the bradycardia. Today the HRs are in the 60-70's. 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 This has been put on hold, INR is have needed to be reversed with FFP and vitamin K. The son asked me if Coumadin should be resumed afterward and I responded that this decision should be made by somebody that follows her for long-term care, like her PCP. (6) Anemia Assessment/Plan: Hemoglobin was 13.9 at admission, this dropped to 12 yesterday, is down to 9.9 today. The concern is that there is blood loss somewhere, because of the very elevated INR. The most likely source of bleeding would be near the trauma, at the hip. The hip area will be visualized during surgery, later today. This anemia could also be hemo-dilutional since she has been n.p.o. awaiting surgery and getting IV fluids during that time. She is 2.6 L in (+) fluid balance since admission. Follow H/H every 12 hours. (7) Anxiety and depression Assessment/Plan: Usual home treatment has been ordered here. - Current Meds Current Meds: Current Medications Generic Name Dose Route Start Last Admin Trade Name Freq PRN Reason Stop Dose Admin Acetaminophen 650 mg 07/01/20 16:54 07/02/20 19:20 Tylenol PO 650 mg Q4HR PRN Administration Pain 1 to 4 Amitriptyline HCl 25 mg 07/02/20 14:00 07/03/20 13:21 Elavil PO Not Given TID DIONNE Citalopram Hydrobromide 40 mg 07/03/20 09:00 07/03/20 09:29 Celexa PO Not Given DAILY [facility] Morphine Sulfate 2 mg 07/01/20 16:54 07/02/20 17:52 Morphine (Carpuject) IVP 2 mg Q2HR PRN Administration Pain 8 to 10 Nadolol 40 mg 07/02/20 21:00 07/03/20 13:21 Corgard PO Not Given BID [facility] Oxycodone HCl 5 mg 07/01/20 16:54 07/03/20 04:03 Roxicodone PO 5 mg Q4HR PRN Administration Pain 5 to 7 Sodium Chloride 10 ml 07/01/20 16:49 07/03/20 13:21 Normal Saline Flush 0.9% IVP 10 ml PRN PRN Administration NEEDED PER PROVIDER ORDERS Sodium Chloride 10 ml 07/01/20 17:00 07/03/20 09:30 Normal Saline Flush 0.9% IVP Not Given 0100,0900,1700 [facility] - Lab Result Fish Bone Diagrams: 07/03/20 05:17 07/03/20 05:17 - Additional Planning My Orders: My Active Orders 07/02/20 21:00 nadoloL [Corgard] 40 mg PO BID 07/03/20 CULTURE, BLOOD #1 [RM] Stat CULTURE, BLOOD #2 [RM] Stat 07/03/20 09:00 Citalopram Hydrobromide [Celexa] 40 mg PO DAILY 07/03/20 16:14 Chest 1 View X-Ray [XR] Stat 07/03/20 16:15 UA w/ MICROSCOPIC, CULT IF [URIN] Stat Subjective - Subjective Patient Reports: Pain Objective Vital Signs: Vital Signs - 24 hr 07/02/20 07/02/20 07/02/20 19:48 20:05 20:19 Temperature 36.7 C 36.7 C 36.8 C Heart Rate 64 63 Heart Rate [ 64 Brachial] Respiratory 18 18 16 Rate Blood Pressure 137/53 H 142/54 H Blood Pressure 137/53 H [Right Brachial artery] O2 Saturation 93 07/02/20 07/03/20 07/03/20 21:05 00:36 04:41 Temperature 36.9 C 37.2 C Heart Rate Heart Rate [ 93 63 65 Brachial] Respiratory 17 18 18 Rate Blood Pressure Blood Pressure 132/56 H 125/54 L 137/56 H [Right Brachial artery] O2 Saturation 95 93 96 07/03/20 07/03/20 07/03/20 07:52 08:50 08:55 Temperature 36.7 C 37.5 C 37.6 C H Heart Rate 66 70 Heart Rate [ 64 66 Brachial] Respiratory 22 16 16 Rate Blood Pressure 136/54 H 135/49 H Blood Pressure 128/48 L 136/54 H [Right Brachial artery] O2 Saturation 95 94 07/03/20 07/03/20 07/03/20 09:05 09:15 12:36 Temperature 37.6 C H 38 C H 38 C H Heart Rate 71 71 65 Heart Rate [ 71 Brachial] Respiratory 16 16 17 Rate Blood Pressure 137/52 H 137/50 H 105/80 Blood Pressure 137/50 H [Right Brachial artery] O2 Saturation 93 07/03/20 07/03/20 07/03/20 12:45 13:00 13:16 Temperature 38 C H 38.3 C H 38.3 C H Heart Rate 66 69 68 Heart Rate [ 68 Brachial] Respiratory 16 16 16 Rate Blood Pressure 142/55 H 145/55 H Blood Pressure 143/55 H [Right Brachial artery] O2 Saturation 94 07/03/20 07/03/20 07/03/20 13:38 15:58 16:14 Temperature 37.6 C H 38.6 C H 37.7 C H Heart Rate Heart Rate [ 75 Brachial] Respiratory 18 Rate Blood Pressure Blood Pressure 156/61 H [Right Brachial artery] O2 Saturation 94 Oxygen O2 Source Room air I&O (Last 24 Hrs): Intake and Output Totals x24h 07/01/20 07/02/20 07/03/20 23:59 23:59 23:59 Intake Total 1082.5 2108 300 Output Total 75 550 525 Balance 1007.5 1558 -225 General: Alert, Other (Cheeks flushed during a fever.) HEENT: Other (Mucosa dry, cheeks are flushed) Neck: Supple Neuro: Non Focal Cardiovascular: Regular rate Respiratory: No respiratory distress Abdomen: Soft Extremities: No edema - Results Results: Laboratory Results WBC 8.0 x10^3/uL (4.8-10.8) 07/03/20 05:17 RBC 3.32 10^6/uL (4.20-5.40) L 07/03/20 05:17 Hgb 9.9 g/dL (12.0-16.0) L 07/03/20 05:17 Hct 30.9 % (37.0-47.0) L 07/03/20 05:17 MCV 93.1 fL (81.0-99.0) 07/03/20 05:17 MCH 29.8 pg (27.0-31.0) 07/03/20 05:17 MCHC 32.0 g/dL (32.0-36.0) 07/03/20 05:17 RDW 13.1 % (12.0-15.0) 07/03/20 05:17 Plt Count 99 10^3/uL (130-450) L 07/03/20 05:17 MPV 10.0 fL (7.9-10.8) 07/03/20 05:17 Neut # (Auto) 5.9 10^3/uL (1.5-6.6) 07/03/20 05:17 Lymph # (Auto) 1.2 10^3/uL (1.5-3.5) L 07/03/20 05:17 Love # (Auto) 0.8 10^3/uL (0.0-1.0) 07/03/20 05:17 Eos # (Auto) 0.1 10^3/uL (0.0-0.7) 07/03/20 05:17 Baso # (Auto) 0.0 10^3/uL (0.0-0.1) 07/03/20 05:17 Absolute Nucleated RBC 0.00 x10^3/uL 07/03/20 05:17 Nucleated RBC % 0.0 /100WBC 07/03/20 05:17 PT 20.1 secs (9.9-12.6) H 07/03/20 13:50 INR 1.9 (0.8-1.2) H 07/03/20 13:50 Sodium 133 mmol/L (135-145) L 07/03/20 05:17 Potassium 3.9 mmol/L (3.5-5.0) 07/03/20 05:17 Chloride 101 mmol/L (101-111) 07/03/20 05:17 Carbon Dioxide 22 mmol/L (21-32) 07/03/20 05:17 Anion Gap 10.0 (6-13) 07/03/20 05:17 BUN 27 mg/dL (6-20) H 07/03/20 05:17 Creatinine 1.0 mg/dL (0.4-1.0) 07/03/20 05:17 Estimated GFR (MDRD) 52 (>89) L 07/03/20 05:17 Glucose 163 mg/dL (70-100) H 07/03/20 05:17 Calcium 8.4 mg/dL (8.5-10.3) L 07/03/20 05:17 Phosphorus 2.2 mg/dL (2.5-4.6) L 07/03/20 05:17 Magnesium 2.1 mg/dL (1.7-2.8) 07/03/20 05:17 Total Bilirubin 0.9 mg/dL (0.2-1.0) 07/01/20 15:36 AST 33 IU/L (10-42) 07/01/20 15:36 ALT 28 IU/L (10-60) 07/01/20 15:36 Alkaline Phosphatase 94 IU/L (42-121) 07/01/20 15:36 Troponin I High Sens 4.1 ng/L (2.3-14.8) 07/02/20 04:50 Total Protein 7.3 g/dL (6.7-8.2) 07/01/20 15:36 Albumin 4.4 g/dL (3.2-5.5) 07/01/20 15:36 Globulin 2.9 g/dL (2.1-4.2) 07/01/20 15:36 Albumin/Globulin Ratio 1.5 (1.0-2.2) 07/01/20 15:36 Lipase 21 U/L (22-51) L 07/01/20 15:36 TSH 2.77 uIU/mL (0.34-5.60) 07/02/20 04:50 Urine Color DARK YELLOW 07/01/20 17:44 Urine Clarity CLEAR (CLEAR) 07/01/20 17:44 Urine pH 5.5 PH (5.0-7.5) 07/01/20 17:44 Ur Specific [place] >=1.030 (1.002-1.030) H 07/01/20 17:44 Urine Protein NEGATIVE mg/dL (NEGATIVE) 07/01/20 17:44 Urine Glucose (UA) NEGATIVE mg/dL (NEGATIVE) 07/01/20 17:44 Urine Ketones TRACE mg/dL (NEGATIVE) 07/01/20 17:44 Urine Occult Blood LARGE (NEGATIVE) H 07/01/20 17:44 Urine Nitrite NEGATIVE (NEGATIVE) 07/01/20 17:44 Urine Bilirubin SMALL (NEGATIVE) H 07/01/20 17:44 Urine Urobilinogen 1 (NORMAL) E.U./dL (NORMAL) 07/01/20 17:44 Ur Leukocyte Esterase NEGATIVE (NEGATIVE) 07/01/20 17:44 Urine RBC 11-25 /HPF (0-5) H 07/01/20 17:44 Urine WBC 0-3 /HPF (0-5) 07/01/20 17:44 Ur Squamous Epith Cells MOD Squamous (<= Few) H 07/01/20 17:44 Urine Bacteria None Seen /HPF (None Seen) 07/01/20 17:44 Urine Mucus Moderate Strands 07/01/20 17:44 Ur Microscopic Review INDICATED 07/01/20 17:44 Urine Culture Comments NOT INDICATED 07/01/20 17:44 Blood Type O NEGATIVE 07/03/20 07:55 Blood Type Recheck O NEGATIVE 07/01/20 15:36 Antibody Screen NEGATIVE 07/01/20 17:05
[2020-07-03] MEDS ORDERED: BUPIVACAINE 0.25% PF 30 ML VIAL ONE (16:23)
--- NOTE | 2020-07-03 16:46 | XRAY Report ---
PROCEDURE: Chest 1 View X-Ray INDICATIONS: Fever TECHNIQUE: One view of the chest was acquired. COMPARISON: None. FINDINGS: Surgical changes and devices: None. Lungs and pleura: No focal consolidation. There is interstitial prominence bilaterally. No pleural e ffusions or pneumothorax. Mediastinum: Mediastinal contours appear normal. Heart size is normal. Bones and chest wall: No suspicious bony lesions. Overlying soft tissues appear unremarkable. IMPRESSION: 1. No consolidation to suggest lobar pneumonia. 2. Bilateral interstitial prominence is nonspecific and the differential includes interstitial edema which may be due to cardiogenic or noncardiogenic etiologies such as atypical infection. Reviewed by: Fawad Martínez MD on 07/03/2020 4:44 PM PDT Approved by: Fawad Martínez MD on 07/03/2020 4:44 PM PDT Station ID: [id number]
[2020-07-03] MEDS ORDERED: DEXAMETHASONE 4 MG/ML VIAL IVP ONE (16:50)
[2020-07-03] MEDS ORDERED: ePHEDrine 50 MG/ML VIAL IVP ONE (16:50)
[2020-07-03] MEDS ORDERED: ACETAMINOPHEN 1,000 MG/100 ML 100 ML IV ONE ×2 (16:50→17:29)
[2020-07-03] MEDS ORDERED: ONDANSETRON 4 MG/2 ML VIAL IVP ONE (16:50)
[2020-07-03] MEDS ORDERED: ROCURONIUM 50 MG/5 ML VIAL IVP ONE (16:50)
[2020-07-03] MEDS ORDERED: PROPOFOL 200 MG/20 ML VIAL IVP ONE (16:50)
[2020-07-03] MEDS ORDERED: SUGAMMADEX 200 MG/2 ML VIAL IVP ONE (16:50)
[2020-07-03] MEDS ORDERED: TRANEXAMIC ACID 1,000 MG/10 ML VIAL IV ONE (16:50)
--- NOTE | 2020-07-03 19:29 | OPERATIVE REPORT ---
Operative Report - General Admit Date: 07/01/20 Procedure Date: 07/03/20 Planned Procedure: Open reduction internal fixation left intertrochanteric hip fracture with intramedullary lexy and hip screw Pre-Op Diagnosis: Displaced intertrochanteric fracture left hip Procedure Performed: Open reduction internal fixation intertrochanteric fracture left hipWith [employer] InterTAN: 11.5 mm distally locked lexy with 100 mm lag screw and 95 mm compression screw Post Op Diagnosis: Same as preop diagnosis - Procedure Note Primary Surgeon: Dr. Brandon Quiroz Secondary Surgeon: KRISTIN Lowery Anesthesia Provider: Eduardo Leon Anesthesia Technique: General ET tube Estimated Blood Loss (mL): 200 Indications: This is a 89-year-old woman who mechanical fall and sustained isolated injury to left hip. She had pain and limited motion to left hip with external rotation and shortening deformity to the left leg. X-ray showed a comminuted displaced intertrochanteric fracture of the left hip. Her surgery was postponed because of elevated INR secondary to chronic use of Coumadin. It is taken almost 2 days to reverse her INR to a level of 1.9 with vitamin K and fresh frozen plasma.She also has an anemia most likely associated with blood loss from the fracture and anticoagulation. Findings: Displaced intertrochanteric fracture left hip - Other Other Information/Narrative: The patient was given a general endotracheal anesthetic and then transferred to the [place] fracture table where she was placed in a supine position. The left leg was placed in boot traction and the well leg was placed in a well-leg blackburn with the hip flexed abducted and externally rotated. The left hip and lower extremity was prepped and draped in a sterile manner in the usual fashion with a vertical transparent barrier. A timeout procedure was performed by the entire operating room team and all were in agreement. The [employer] InterTAN system was utilized. A 2 inch incision was made proximal to the greater trochanter. A incision was made to the subcutaneous tissue and fascia and blunt dissection through the underlying muscle. A bone awl was used to a achieve the starting point and was completed with a guidepin that was inserted down the medullary canal. Both AP and lateral imaging showedThe C-arm image intensifier also was used before making the incision and showed good alignment of the intertrochanteric fracture. Reaming was then performed over the guidepin to make a medullary hole for the proximal femur. The assembled intramedullary lexy was then impacted by hand down the femoral canal. Once this was seated, a second incision was made more distally for insertion of the guidepin lag screw. This was inserted in the midline on both AP and lateral imaging and considerable care was taken to achieve central alignment. The compression screw hole was drilled with both a outer and inner drill bit. The lag screw pin had to be exchanged because it was slightly bent at the tip so that the cannulated reamer would not fit over the guidepin. Reaming was then carried out and the lag screw was inserted and then the compression screw. Distal locking was then to the static hole with a 35 mm bicortical screw final imaging showed a change in position of the lag screw on the lateral view where it shifted to a more anterior and superior position but not cut out. Live fluoroscopy imaging was done and the screw was within the head and the fracture was still well stabilized. The lag screw was in good position on the AP view. An attempt was made to remove the distal locking screw but after multiple attempts, the screw could not be removed since the screw head seemed to be stripped and had excellent fixation. Therefore, the lag screw could not be changed but it seemed to have good fixation within the femoral head. The wounds were irrigated. The subcutaneous tissue was closed with 2-0 Vicryl. The skin was closed with 3-0 Monocryl subcuticular and Dermabond. A silver impregnated dressing was applied. There is no clinical deformity. The blood loss was slightly greater than normal most likely because of her previous anticoagulation. She tolerated procedure well. She did receive trans-Emerita acid and 2 g of Ancef intravenously. A physician health assistant was used to help position the patient, expose the surgical sites, wound closure and dressing application.
[2020-07-03] MEDS ORDERED: SODIUM CHLORIDE FLUSH 0.9% 10 ML SYRINGE IVP PRN (19:31)
[2020-07-03] MEDS ORDERED: ACETAMINOPHEN 325 MG TABLET PO PRN (19:31)
[2020-07-03] MEDS ORDERED: LACTATED RINGERS 1,000 ML IV ONE (19:51)
[2020-07-03] MEDS ORDERED: ceFAZolin 2 GM in SODIUM CHLORIDE 0.9% 100ML 100 ML IV SCH (20:00)
[2020-07-03] MEDS ORDERED: HYDROmorphone 0.5 MG/0.5 ML SYRINGE IVP PRN (20:08)
[2020-07-03] MEDS ORDERED: fentaNYL 100 MCG/2 ML VIAL IVP PRN (20:08)
[2020-07-03] MEDS ORDERED: ePHEDrine 50 MG/ML VIAL IVP PRN (20:08)
[2020-07-03] MEDS ORDERED: NALOXONE 0.4 MG/ML VIAL IVP PRN (20:08)
[2020-07-03] MEDS ORDERED: ATROPINE ABBOJECT 1 MG/10 ML SYRINGE IVP PRN (20:08)
[2020-07-03] MEDS ORDERED: METOCLOPRAMIDE 10 MG/2 ML VIAL IVP PRN (20:08)
[2020-07-03] MEDS ORDERED: ONDANSETRON 4 MG/2 ML VIAL IVP PRN (20:08)
[2020-07-03] MEDS ORDERED: MORPHINE 2 MG/ML CARPUJECT IVP PRN (20:08)
--- NOTE | 2020-07-03 20:20 | ANESTHESIA POST OP EVALUATION ---
Anesthesia Post Eval - Post Anesthesia Eval Vitals: Last Vital Signs Temp 36.9 C 07/03/20 20:15 Pulse 93 07/03/20 20:15 Resp 21 07/03/20 20:15 BP 122/84 H 07/03/20 20:15 Pulse Ox 93 07/03/20 20:15 CV Function Including HR & BP: positive: Stable Pain Control: positive: Satisfactory Nausea & Vomiting: positive: Negative Mental Status: positive: Baseline Respiratory Status: Airway Patent Hydration Status: Satisfactory Anesthesia Complications: positive: None
[2020-07-03] MEDS ORDERED: LACTATED RINGERS 1,000 ML IV SCH (21:00)
[2020-07-03] MEDS: SODIUM CHLORIDE 0.9% 1,000 ML IV SCH (21:30)
[2020-07-04] MEDS: MORPHINE 2 MG/ML CARPUJECT IVP PRN (00:20)
[2020-07-04] MEDS: SODIUM CHLORIDE FLUSH 0.9% 10 ML SYRINGE IVP SCH ×6 (00:21→16:36)
[2020-07-04] MEDS ORDERED: ceFAZolin 2 GM in SODIUM CHLORIDE 0.9% 100ML 100 ML IV SCH ×2 (01:00→09:00)
[2020-07-04] MEDS: ACETAMINOPHEN 1,000 MG/100 ML 100 ML IV PRN (02:06)
[2020-07-04 05:32] LABS: BASOPHILS % (AUTO) 0.1 %; HGB - HEMOGLOBIN 8.2 g/dL (12.0-16.0); LYMPHOCYTES # (AUTO) 0.6 10^3/uL (1.5-3.5); LYMPHOCYTES % (AUTO) 8.2 %; MEAN CORPUSCULAR HEMOGLOBIN 29.6 pg (27.0-31.0); MEAN CORPUSCULAR HGB CONC 30.4 g/dL (32.0-36.0); MEAN CORPUSCULAR VOLUME 97.5 fL (81.0-99.0); MEAN PLATELET VOLUME 10.5 fL (7.9-10.8); MONOCYTES # (AUTO) 0.4 10^3/uL (0.0-1.0); MONOCYTES % (AUTO) 5.4 %; NEUTROPHILS # (AUTO) 6.2 10^3/uL (1.5-6.6); RED BLOOD COUNT 2.77 10^6/uL (4.20-5.40); RED CELL DISTRIBUTION WIDTH 12.7 % (12.0-15.0); WHITE BLOOD COUNT 7.2 x10^3/uL (4.8-10.8)
[2020-07-04 05:35] LABS: PLT - PLATELET COUNT 98 10^3/uL (130-450)
[2020-07-04 05:43] LABS: CALCIUM 8.1 mg/dL (8.5-10.3); CREATININE 0.8 mg/dL (0.4-1.0); MAGNESIUM 2.1 mg/dL (1.7-2.8)
[2020-07-04] MEDS: AMITRIPTYLINE 25 MG TABLET PO SCH ×3 (05:48→20:52)
[2020-07-04] MEDS: ACETAMINOPHEN 325 MG TABLET PO PRN ×2 (05:48→14:32)
[2020-07-04 07:28] LABS: INR 1.5 (0.8-1.2); PT - PROTHROMBIN TIME 16.7 secs (9.9-12.6)
[2020-07-04] MEDS: oxyCODONE 5 MG TABLET PO PRN ×3 (07:49→20:52)
--- NOTE | 2020-07-04 08:00 | PROVIDER PROGRESS NOTE ---
Subjective - General Admit Date: 07/01/20 Procedure Date: 07/03/20 Post Op Days: 1 - Review of Systems Wound/Incisions: positive: Dressing dry and intact General: negative: Other (She is alert, comfortable, sitting in bed) All Other Systems: positive: Reviewed and negative - Other Other Information/Narrative: Status post open reduction internal fixation of a left intertrochanteric fracture The plan is for physical and Occupational Therapy. Her lab work is pending. Objective - Patient Data Vital Signs: Vital Signs x48h Temp Pulse Resp BP Pulse Ox 07/04/20 07:46 36.6 C 61 18 124/56 L 94 07/04/20 04:55 36.2 C L 52 L 20 108/45 L 93 07/04/20 00:37 36.3 C L 57 L 21 131/57 H 98 Intake & Output: Intake and Output Totals x24h 07/02/20 07/03/20 07/04/20 23:59 23:59 23:59 Intake Total 2108 300 350 Output Total 550 575 350 Balance 1558 -275 0 - Lab Results Lab Results: 07/04/20 05:20 07/04/20 05:20 Other Lab Results: Lab Results x24hrs 07/04/20 07/04/20 07/04/20 Range/Units 07:08 05:20 05:20 WBC 7.2 (4.8-10.8) x10^3/uL RBC 2.77 L (4.20-5.40) 10^6/uL Hgb 8.2 L (12.0-16.0) g/dL Hct 27.0 L (37.0-47.0) % MCV 97.5 (81.0-99.0) fL MCH 29.6 (27.0-31.0) pg MCHC 30.4 L (32.0-36.0) g/dL RDW 12.7 (12.0-15.0) % Plt Count 98 L (130-450) 10^3/uL MPV 10.5 (7.9-10.8) fL Neut # (Auto) 6.2 (1.5-6.6) 10^3/uL Lymph # (Auto) 0.6 L (1.5-3.5) 10^3/uL Patrick # (Auto) 0.4 (0.0-1.0) 10^3/uL Eos # (Auto) 0.0 (0.0-0.7) 10^3/uL Baso # (Auto) 0.0 (0.0-0.1) 10^3/uL Absolute Nucleated RBC 0.00 x10^3/uL Nucleated RBC % 0.0 /100WBC PT 16.7 H (9.9-12.6) secs INR 1.5 H (0.8-1.2) Sodium 136 (135-145) mmol/L Potassium 4.0 (3.5-5.0) mmol/L Chloride 103 (101-111) mmol/L Carbon Dioxide 24 (21-32) mmol/L Anion Gap 9.0 (6-13) BUN 23 H (6-20) mg/dL Creatinine 0.8 (0.4-1.0) mg/dL Estimated GFR (MDRD) 68 L (>89) Glucose 168 H (70-100) mg/dL Calcium 8.1 L (8.5-10.3) mg/dL Phosphorus 3.0 (2.5-4.6) mg/dL Magnesium 2.1 (1.7-2.8) mg/dL Blood Type 07/03/20 07/03/20 07/03/20 Range/Units 13:50 09:52 07:55 WBC (4.8-10.8) x10^3/uL RBC (4.20-5.40) 10^6/uL Hgb (12.0-16.0) g/dL Hct (37.0-47.0) % MCV (81.0-99.0) fL MCH (27.0-31.0) pg MCHC (32.0-36.0) g/dL RDW (12.0-15.0) % Plt Count (130-450) 10^3/uL MPV (7.9-10.8) fL Neut # (Auto) (1.5-6.6) 10^3/uL Lymph # (Auto) (1.5-3.5) 10^3/uL Patrick # (Auto) (0.0-1.0) 10^3/uL Eos # (Auto) (0.0-0.7) 10^3/uL Baso # (Auto) (0.0-0.1) 10^3/uL Absolute Nucleated RBC x10^3/uL Nucleated RBC % /100WBC PT 20.1 H 23.5 H (9.9-12.6) secs INR 1.9 H 2.2 H (0.8-1.2) Sodium (135-145) mmol/L Potassium (3.5-5.0) mmol/L Chloride (101-111) mmol/L Carbon Dioxide (21-32) mmol/L Anion Gap (6-13) BUN (6-20) mg/dL Creatinine (0.4-1.0) mg/dL Estimated GFR (MDRD) (>89) Glucose (70-100) mg/dL Calcium (8.5-10.3) mg/dL Phosphorus (2.5-4.6) mg/dL Magnesium (1.7-2.8) mg/dL Blood Type O NEGATIVE - Current Medications Current Medications: Current Medications Generic Name Dose Route Start Last Admin [facility] Reason Stop Dose Admin Acetaminophen 650 mg 07/01/20 16:54 07/04/20 05:48 Tylenol PO 650 mg Q4HR PRN Administration Pain 1 to 4 Amitriptyline HCl 25 mg 07/02/20 14:00 07/04/20 05:48 Elavil PO 25 mg TID DIONNE Administration Citalopram Hydrobromide 40 mg 07/03/20 09:00 07/03/20 09:29 Celexa PO Not Given DAILY DIONNE Acetaminophen 100 mls @ 400 mls/hr 07/03/20 19:31 07/04/20 02:33 Ofirmev IV Infused Q6HR PRN Infusion PAIN Sodium Chloride 1,000 mls @ 100 mls/hr 07/03/20 20:00 07/03/20 21:30 Normal Saline 0.9% IV 100 mls/hr .Q10H DIONNE Administration Morphine Sulfate 2 mg 07/01/20 16:54 07/04/20 00:20 Morphine (Carpuject) IVP 2 mg Q2HR PRN Administration Pain 8 to 10 Nadolol 40 mg 07/02/20 21:00 07/03/20 21:32 Corgard PO 40 mg BID DIONNE Administration Oxycodone HCl 5 mg 07/01/20 16:54 07/04/20 07:49 Roxicodone PO 5 mg Q4HR PRN Administration Pain 5 to 7 Sodium Chloride 10 ml 07/01/20 16:49 07/03/20 13:21 Normal Saline Flush 0.9% IVP 10 ml PRN PRN Administration NEEDED PER PROVIDER ORDERS Sodium Chloride 10 ml 07/01/20 17:00 07/04/20 01:10 Normal Saline Flush 0.9% IVP Not Given 0100,0900,1700 DIONNE Sodium Chloride 10 ml 07/04/20 01:00 07/04/20 00:21 Normal Saline Flush 0.9% IVP 10 ml 0100,0900,1700 DIONNE Administration
--- NOTE | 2020-07-04 09:19 | XRAY Report ---
PROCEDURE: OR C-Arm Procedure INDICATIONS: SURGERY TECHNIQUE: 3 intraoperative fluoroscopic images of left hip were obtained. COMPARISON: Left hip radiograph dated 07/01/2020. FINDINGS: Intraoperative fluoroscopic images shows intramedullary lexy placement in left femoral shaft with at l east 2 surgical screws seen in left femoral neck. Alignment of left hip is near anatomic. IMPRESSION: Fluor guidance was provided intraoperatively for internal fixation of patient's known left intertroch anteric femoral fracture. Reviewed by: Juan R Lui MD on 07/04/2020 9:18 AM PDT Approved by: Juan R Lui MD on 07/04/2020 9:18 AM PDT Station ID: [id number]
[2020-07-04] MEDS: CITALOPRAM HYDROBROMIDE 20 MG TABLET PO SCH (09:24)
[2020-07-04] MEDS: nadoloL 20 MG TABLET PO SCH (09:24)
[2020-07-04] MEDS: SODIUM CHLORIDE 0.9% 1,000 ML IV SCH ×2 (09:40→14:24)
--- NOTE | 2020-07-04 13:59 | PROVIDER PROGRESS NOTE ---
Assessment/Plan - Problem List (1) Closed left hip fracture Assessment/Plan: Patient underwent successful hip surgery late yesterday afternoon. There is been no fever following that. Today she will start physical therapy and OT. Orthostatic vital signs can start to be checked since we she will now be out of bed. The plan is for physical therapy at a SNF very likely. Will order COVID test to have a result. Will obtain vitamin D level. Patient will need outpatient management for any osteoporosis. (2) Fall Qualifiers: Encounter type: subsequent encounter Qualified Code(s): W19.XXXD - Unspecified fall, subsequent encounter Assessment/Plan: Patient had reported that she cannot remember how she fell, which was while she was shopping in a grocery store, holding a shopping cart. Since she had no recollection of the event, syncope was highly suspected. (3) Orthostatic hypotension Assessment/Plan: Orthostatic vital signs have been ordered to be checked and the first set was done today: She had a drop of 59 mmHg and systolic blood pressure from going to supine to standing. She also had a compensatory heart rate increased from 60 to 106, appropriately. We will continue with vital sign checks such as this, continue telemetry. Will decrease nadolol dose, as this is an excessive blood pressure drop. Continue with IV fluids but at a lower rate. Since she has supine hypertension, will continue with some blood pressure med at a lower dose. We will order knee-high compression stockings for her orthostasis. (4) Bradycardia Assessment/Plan: 1 nadolol was on hold for 24 hours, her heart rate of 50 increased to 60-70. Since she has compensatory tachycardia up to 106 with standing, will resume a lower dose of beta-дмитрий than her usual. Holding parameters will be ordered. 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 This has been put on hold, elevated INR's have needed to be reversed with FFP and vitamin K. The son asked me if Coumadin should be resumed afterward and I responded that this decision should be made by somebody that follows her for long-term care, like her PCP. Here, we plan no Coumadin for several days. (6) Anemia Assessment/Plan: Hemoglobin was 13.9 at admission>> 12 >> 9.9>> 8.2 today. The concern is that there was blood loss somewhere, because of the very elevated INR. The most likely location of blood loss would be near the trauma, at the hip. Dr Perales, the orthopedist, described that she had more than the usual amount of blood loss during the ORIF, her's was 200 cc EBL This anemia could also be hemo-dilutional since she has been n.p.o. awaiting surgery and getting IV fluids during that time. She is 3.5 L in (+) fluid balance since admission. Will decrease iv rate, now that she can eat after being NPO awaiting surgery. Follow H/H every 12-24 hours. (7) Anxiety and depression Assessment/Plan: Usual home treatment has been ordered here. (8) Fever Assessment/Plan: No further fever since yesterday. The chest x-ray showed no consolidation. Blood cultures are still pending but are negative to date. No urinalysis was sent. Continue to watch and observe, she received just empiric jamil-op Ancef before orthopedic surgery. - Current Meds Current Meds: Current Medications Generic Name Dose Route Start Last Admin Trade Name Freq PRN Reason Stop Dose Admin Acetaminophen 650 mg 07/01/20 16:54 07/04/20 05:48 Tylenol PO 650 mg Q4HR PRN Administration Pain 1 to 4 Amitriptyline HCl 25 mg 07/02/20 14:00 07/04/20 13:40 Elavil PO 25 mg TID DIONNE Administration Citalopram Hydrobromide 40 mg 07/03/20 09:00 07/04/20 09:24 Celexa PO 40 mg DAILY DIONNE Administration Acetaminophen 100 mls @ 400 mls/hr 07/03/20 19:31 07/04/20 02:33 Ofirmev IV Infused Q6HR PRN Infusion PAIN Morphine Sulfate 2 mg 07/01/20 16:54 07/04/20 00:20 Morphine (Carpuject) IVP 2 mg Q2HR PRN Administration Pain 8 to 10 Oxycodone HCl 5 mg 07/01/20 16:54 07/04/20 07:49 Roxicodone PO 5 mg Q4HR PRN Administration Pain 5 to 7 Sodium Chloride 10 ml 07/01/20 16:49 07/03/20 13:21 Normal Saline Flush 0.9% IVP 10 ml PRN PRN Administration NEEDED PER PROVIDER ORDERS Sodium Chloride 10 ml 07/01/20 17:00 07/04/20 10:48 Normal Saline Flush 0.9% IVP Not Given 0100,0900,1700 [facility] Sodium Chloride 10 ml 07/04/20 01:00 07/04/20 10:48 Normal Saline Flush 0.9% IVP Not Given 0100,0900,1700 [facility] - Lab Result Fish Bone Diagrams: 07/04/20 05:20 07/04/20 05:20 - Additional Planning My Orders: My Active Orders 07/03/20 16:15 UA w/ MICROSCOPIC, CULT IF [URIN] Stat 07/03/20 20:38 CULTURE, BLOOD #1 [RM] Stat 07/03/20 20:44 CULTURE, BLOOD #2 [RM] Stat 07/04/20 12:24 COVID-19 REFERENCE TEST Routine 07/04/20 13:57 Sodium Chloride 0.9% [Normal Saline 0.9%] 1,000 ml IV 40 mls/hr 07/05/20 05:00 FOLATE [IAI] DAILYLAB IRON TIBC PANEL [CHEM] DAILYLAB PT WITH INR [COAG] DAILYLAB VITAMIN B12 [IAI] DAILYLAB VITAMIN D,25-OH,TOTAL,IA [REFLAB] DAILYLAB 07/06/20 05:00 PT WITH INR [COAG] DAILYLAB 07/07/20 05:00 PT WITH INR [COAG] DAILYLAB 07/08/20 05:00 PT WITH INR [COAG] DAILYLAB Subjective - Subjective Patient Reports: Feeling Better (She is in good spirits, says that her food is fine, she is doing a crossword puzzle in bed and not in), Resting Comfortably Objective Vital Signs: Vital Signs - 24 hr 07/03/20 07/03/20 07/03/20 15:58 16:14 19:51 Temperature 38.6 C H 37.7 C H 36.6 C Heart Rate 66 Heart Rate [ Activity] Heart Rate [ 75 Brachial] Heart Rate [ Sitting] Heart Rate [ Standing] Heart Rate [ Supine] Respiratory 18 22 Rate Blood Pressure 144/65 H Blood Pressure [Activity] Blood Pressure [Left Brachial artery] Blood Pressure 156/61 H [Right Brachial artery] Blood Pressure [Sitting] Blood Pressure [Standing] Blood Pressure [Supine] O2 Saturation 94 100 07/03/20 07/03/20 07/03/20 19:55 20:00 20:05 Temperature 37.1 C 37.2 C Heart Rate 63 63 63 Heart Rate [ Activity] Heart Rate [ Brachial] Heart Rate [ Sitting] Heart Rate [ Standing] Heart Rate [ Supine] Respiratory 25 H 23 21 Rate Blood Pressure 150/65 H 150/56 H 153/72 H Blood Pressure [Activity] Blood Pressure [Left Brachial artery] Blood Pressure [Right Brachial artery] Blood Pressure [Sitting] Blood Pressure [Standing] Blood Pressure [Supine] O2 Saturation 100 100 100 07/03/20 07/03/20 07/03/20 20:10 20:15 20:35 Temperature 37.2 C 36.9 C 36.5 C Heart Rate 65 93 Heart Rate [ Activity] Heart Rate [ 60 Brachial] Heart Rate [ Sitting] Heart Rate [ Standing] Heart Rate [ Supine] Respiratory 20 21 17 Rate Blood Pressure 139/71 H 122/84 H Blood Pressure [Activity] Blood Pressure 114/61 [Left Brachial artery] Blood Pressure [Right Brachial artery] Blood Pressure [Sitting] Blood Pressure [Standing] Blood Pressure [Supine] O2 Saturation 100 93 100 07/03/20 07/03/20 07/03/20 21:02 21:33 21:58 Temperature 35.6 C L 35.6 C L 35.8 C L Heart Rate 61 Heart Rate [ Activity] Heart Rate [ 61 55 L Brachial] Heart Rate [ Sitting] Heart Rate [ Standing] Heart Rate [ Supine] Respiratory 20 20 20 Rate Blood Pressure Blood Pressure [Activity] Blood Pressure 130/54 L 117/50 L [Left Brachial artery] Blood Pressure [Right Brachial artery] Blood Pressure [Sitting] Blood Pressure [Standing] Blood Pressure [Supine] O2 Saturation 100 100 100 07/04/20 07/04/20 07/04/20 00:37 04:55 07:46 Temperature 36.3 C L 36.2 C L 36.6 C Heart Rate Heart Rate [ Activity] Heart Rate [ 57 L 52 L 61 Brachial] Heart Rate [ Sitting] Heart Rate [ Standing] Heart Rate [ Supine] Respiratory 21 20 18 Rate Blood Pressure Blood Pressure [Activity] Blood Pressure [Left Brachial artery] Blood Pressure 131/57 H 108/45 L 124/56 L [Right Brachial artery] Blood Pressure [Sitting] Blood Pressure [Standing] Blood Pressure [Supine] O2 Saturation 98 93 94 07/04/20 07/04/20 07/04/20 10:45 11:10 12:33 Temperature 36.5 C Heart Rate Heart Rate [ 65 Activity] Heart Rate [ 65 Brachial] Heart Rate [ 106 H Sitting] Heart Rate [ 75 Standing] Heart Rate [ 60 109 H Supine] Respiratory 20 Rate Blood Pressure Blood Pressure 134/94 H [Activity] Blood Pressure [Left Brachial artery] Blood Pressure 119/50 L [Right Brachial artery] Blood Pressure 110/62 [Sitting] Blood Pressure 110/51 L [Standing] Blood Pressure 159/94 H 151/62 H [Supine] O2 Saturation 95 Oxygen O2 Source Room air I&O (Last 24 Hrs): Intake and Output Totals x24h 07/02/20 07/03/20 07/04/20 23:59 23:59 23:59 Intake Total 2108 300 1810 Output Total 550 575 350 Balance 1558 -275 1460 General: Alert, Oriented x3 HEENT: Mucous membr. moist/pink Neck: Supple, No JVD Neuro: Alert, Non Focal Cardiovascular: Regular rate, No murmurs Respiratory: No respiratory distress Abdomen: Soft Extremities: No edema - Results Results: Laboratory Results WBC 7.2 x10^3/uL (4.8-10.8) 07/04/20 05:20 RBC 2.77 10^6/uL (4.20-5.40) L 07/04/20 05:20 Hgb 8.2 g/dL (12.0-16.0) L 07/04/20 05:20 Hct 27.0 % (37.0-47.0) L 07/04/20 05:20 MCV 97.5 fL (81.0-99.0) 07/04/20 05:20 MCH 29.6 pg (27.0-31.0) 07/04/20 05:20 MCHC 30.4 g/dL (32.0-36.0) L 07/04/20 05:20 RDW 12.7 % (12.0-15.0) 07/04/20 05:20 Plt Count 98 10^3/uL (130-450) L 07/04/20 05:20 MPV 10.5 fL (7.9-10.8) 07/04/20 05:20 Neut # (Auto) 6.2 10^3/uL (1.5-6.6) 07/04/20 05:20 Lymph # (Auto) 0.6 10^3/uL (1.5-3.5) L 07/04/20 05:20 Placer # (Auto) 0.4 10^3/uL (0.0-1.0) 07/04/20 05:20 Eos # (Auto) 0.0 10^3/uL (0.0-0.7) 07/04/20 05:20 Baso # (Auto) 0.0 10^3/uL (0.0-0.1) 07/04/20 05:20 Absolute Nucleated RBC 0.00 x10^3/uL 07/04/20 05:20 Nucleated RBC % 0.0 /100WBC 07/04/20 05:20 PT 16.7 secs (9.9-12.6) H 07/04/20 07:08 INR 1.5 (0.8-1.2) H 07/04/20 07:08 Sodium 136 mmol/L (135-145) 07/04/20 05:20 Potassium 4.0 mmol/L (3.5-5.0) 07/04/20 05:20 Chloride 103 mmol/L (101-111) 07/04/20 05:20 Carbon Dioxide 24 mmol/L (21-32) 07/04/20 05:20 Anion Gap 9.0 (6-13) 07/04/20 05:20 BUN 23 mg/dL (6-20) H 07/04/20 05:20 Creatinine 0.8 mg/dL (0.4-1.0) 07/04/20 05:20 Estimated GFR (MDRD) 68 (>89) L 07/04/20 05:20 Glucose 168 mg/dL (70-100) H 07/04/20 05:20 Calcium 8.1 mg/dL (8.5-10.3) L 07/04/20 05:20 Phosphorus 3.0 mg/dL (2.5-4.6) 07/04/20 05:20 Magnesium 2.1 mg/dL (1.7-2.8) 07/04/20 05:20 Total Bilirubin 0.9 mg/dL (0.2-1.0) 07/01/20 15:36 AST 33 IU/L (10-42) 07/01/20 15:36 ALT 28 IU/L (10-60) 07/01/20 15:36 Alkaline Phosphatase 94 IU/L (42-121) 07/01/20 15:36 Troponin I High Sens 4.1 ng/L (2.3-14.8) 07/02/20 04:50 Total Protein 7.3 g/dL (6.7-8.2) 07/01/20 15:36 Albumin 4.4 g/dL (3.2-5.5) 07/01/20 15:36 Globulin 2.9 g/dL (2.1-4.2) 07/01/20 15:36 Albumin/Globulin Ratio 1.5 (1.0-2.2) 07/01/20 15:36 Lipase 21 U/L (22-51) L 07/01/20 15:36 TSH 2.77 uIU/mL (0.34-5.60) 07/02/20 04:50 Urine Color DARK YELLOW 07/01/20 17:44 Urine Clarity CLEAR (CLEAR) 07/01/20 17:44 Urine pH 5.5 PH (5.0-7.5) 07/01/20 17:44 Ur Specific Hustle >=1.030 (1.002-1.030) H 07/01/20 17:44 Urine Protein NEGATIVE mg/dL (NEGATIVE) 07/01/20 17:44 Urine Glucose (UA) NEGATIVE mg/dL (NEGATIVE) 07/01/20 17:44 Urine Ketones TRACE mg/dL (NEGATIVE) 07/01/20 17:44 Urine Occult Blood LARGE (NEGATIVE) H 07/01/20 17:44 Urine Nitrite NEGATIVE (NEGATIVE) 07/01/20 17:44 Urine Bilirubin SMALL (NEGATIVE) H 07/01/20 17:44 Urine Urobilinogen 1 (NORMAL) E.U./dL (NORMAL) 07/01/20 17:44 Ur Leukocyte Esterase NEGATIVE (NEGATIVE) 07/01/20 17:44 Urine RBC 11-25 /HPF (0-5) H 07/01/20 17:44 Urine WBC 0-3 /HPF (0-5) 07/01/20 17:44 Ur Squamous Epith Cells MOD Squamous (<= Few) H 07/01/20 17:44 Urine Bacteria None Seen /HPF (None Seen) 07/01/20 17:44 Urine Mucus Moderate Strands 07/01/20 17:44 Ur Microscopic Review INDICATED 07/01/20 17:44 Urine Culture Comments NOT INDICATED 07/01/20 17:44 Blood Type O NEGATIVE 07/03/20 07:55 Blood Type Recheck O NEGATIVE 07/01/20 15:36 Antibody Screen NEGATIVE 07/01/20 17:05
[2020-07-04 17:00] LABS: BILIRUBIN,URINE NEGATIVE (NEGATIVE); GLUCOSE, URINE (UA) NEGATIVE (NEGATIVE); KETONES,URINE (UA) NEGATIVE (NEGATIVE); LEUKOCYTE ESTERASE, URINE NEGATIVE (NEGATIVE); NITRITE,URINE NEGATIVE (NEGATIVE); OCCULT BLOOD,URINE SMALL (NEGATIVE); PROTEIN,URINE TRACE mg/dL (NEGATIVE); UROBILINOGEN,URINE 0.2 (NORMAL) E.U./dL (NORMAL)
[2020-07-04 17:16] LABS: BACTERIA,URINE None Seen /HPF (None Seen); CLARITY,URINE CLEAR (CLEAR); RBC,URINE 0-5 /HPF (0-5); SQUAMOUS EPITHELIAL CELL,UR FEW Squamous (<= Few)
[2020-07-04 17:17] LABS: CASTS, URINE 0-2 Hyaline Casts /LPF
[2020-07-05] MEDS: ACETAMINOPHEN 325 MG TABLET PO PRN ×2 (00:04→20:03)
[2020-07-05] MEDS: SODIUM CHLORIDE FLUSH 0.9% 10 ML SYRINGE IVP SCH ×6 (04:13→15:56)
[2020-07-05 05:12] LABS: BASOPHILS % (AUTO) 0.1 %; EOSINOPHILS % (AUTO) 0.1 %; HGB - HEMOGLOBIN 7.5 g/dL (12.0-16.0); LYMPHOCYTES # (AUTO) 1.1 10^3/uL (1.5-3.5); LYMPHOCYTES % (AUTO) 12.6 %; MEAN CORPUSCULAR HEMOGLOBIN 30.6 pg (27.0-31.0); MEAN CORPUSCULAR HGB CONC 32.2 g/dL (32.0-36.0); MEAN CORPUSCULAR VOLUME 95.1 fL (81.0-99.0); MONOCYTES # (AUTO) 1.1 10^3/uL (0.0-1.0); MONOCYTES % (AUTO) 12.2 %; NEUTROPHILS # (AUTO) 6.6 10^3/uL (1.5-6.6); NEUTROPHILS % (AUTO) 74.7 %; PLT - PLATELET COUNT 125 10^3/uL (130-450); RED BLOOD COUNT 2.45 10^6/uL (4.20-5.40); WHITE BLOOD COUNT 8.8 x10^3/uL (4.8-10.8)
[2020-07-05 05:13] LABS: INR 1.3 (0.8-1.2); PT - PROTHROMBIN TIME 14.6 secs (9.9-12.6)
[2020-07-05] MEDS: AMITRIPTYLINE 25 MG TABLET PO SCH ×3 (05:23→21:13)
[2020-07-05] MEDS: SODIUM CHLORIDE 0.9% 1,000 ML IV SCH (05:27)
[2020-07-05 05:29] LABS: CALCIUM 8.1 mg/dL (8.5-10.3); CREATININE 0.9 mg/dL (0.4-1.0); MAGNESIUM 2.2 mg/dL (1.7-2.8); PHOSPHORUS 2.2 mg/dL (2.5-4.6)
[2020-07-05 05:48] LABS: FOLATE 5.84 ng/mL (5.90 - >24.8)
--- NOTE | 2020-07-05 08:03 | PROVIDER PROGRESS NOTE ---
Subjective - General Admit Date: 07/01/20 Procedure Date: 07/03/20 Post Op Days: 2 - Review of Systems Wound/Incisions: positive: Dressing dry and intact General: negative: Other (She is alert, comfortable, sitting in bed) Musculoskeletal: negative: Other (No clinical deformity left leg) All Other Systems: positive: Reviewed and negative Objective - Patient Data Vital Signs: Vital Signs x48h Temp Pulse Resp BP Pulse Ox 07/05/20 07:52 36.8 C 58 L 16 118/72 94 07/05/20 04:55 36.9 C 58 L 16 128/50 L 95 Intake & Output: Intake and Output Totals x24h 07/03/20 07/04/20 07/05/20 23:59 23:59 23:59 Intake Total 300 2825 450 Output Total 575 1175 600 Balance -275 1650 -150 - Lab Results Lab Results: 07/05/20 04:40 07/05/20 04:40 Other Lab Results: Lab Results x24hrs 07/05/20 07/05/20 07/05/20 Range/Units 04:40 04:40 04:40 WBC (4.8-10.8) x10^3/uL RBC (4.20-5.40) 10^6/uL Hgb (12.0-16.0) g/dL Hct (37.0-47.0) % MCV (81.0-99.0) fL MCH (27.0-31.0) pg MCHC (32.0-36.0) g/dL RDW (12.0-15.0) % Plt Count (130-450) 10^3/uL MPV (7.9-10.8) fL Neut # (Auto) (1.5-6.6) 10^3/uL Lymph # (Auto) (1.5-3.5) 10^3/uL George # (Auto) (0.0-1.0) 10^3/uL Eos # (Auto) (0.0-0.7) 10^3/uL Baso # (Auto) (0.0-0.1) 10^3/uL Absolute Nucleated RBC x10^3/uL Nucleated RBC % /100WBC PT 14.6 H (9.9-12.6) secs INR 1.3 H (0.8-1.2) Sodium 137 (135-145) mmol/L Potassium 3.7 (3.5-5.0) mmol/L Chloride 104 (101-111) mmol/L Carbon Dioxide 27 (21-32) mmol/L Anion Gap 6.0 (6-13) BUN 24 H (6-20) mg/dL Creatinine 0.9 (0.4-1.0) mg/dL Estimated GFR (MDRD) 59 L (>89) Glucose 132 H (70-100) mg/dL Calcium 8.1 L (8.5-10.3) mg/dL Phosphorus 2.2 L (2.5-4.6) mg/dL Magnesium 2.2 (1.7-2.8) mg/dL Iron 22 L (28-170) ug/dL TIBC 238 L (250-450) ug/dL % Saturation 9 L (20-50) % Transferrin 170 L (192-382) mg/dL Vitamin B12 210 (180-914) pg/mL Folate 5.84 L (5.90 - >24.8) ng/mL Urine Color Urine Clarity (CLEAR) Urine pH (5.0-7.5) PH Ur Specific Chauncey (1.002-1.030) Urine Protein (NEGATIVE) mg/dL Urine Glucose (UA) (NEGATIVE) mg/dL Urine Ketones (NEGATIVE) mg/dL Urine Occult Blood (NEGATIVE) Urine Nitrite (NEGATIVE) Urine Bilirubin (NEGATIVE) Urine Urobilinogen (NORMAL) E.U./dL Ur Leukocyte Esterase (NEGATIVE) Urine RBC (0-5) /HPF Urine WBC (0-5) /HPF Ur Squamous Epith Cells (<= Few) Urine Bacteria (None Seen) /HPF Urine Casts /LPF Urine Culture Comments 07/05/20 07/04/20 Range/Units 04:40 16:40 WBC 8.8 (4.8-10.8) x10^3/uL RBC 2.45 L (4.20-5.40) 10^6/uL Hgb 7.5 L (12.0-16.0) g/dL Hct 23.3 L (37.0-47.0) % MCV 95.1 (81.0-99.0) fL MCH 30.6 (27.0-31.0) pg MCHC 32.2 (32.0-36.0) g/dL RDW 13.0 (12.0-15.0) % Plt Count 125 L (130-450) 10^3/uL MPV 11.0 H (7.9-10.8) fL Neut # (Auto) 6.6 (1.5-6.6) 10^3/uL Lymph # (Auto) 1.1 L (1.5-3.5) 10^3/uL George # (Auto) 1.1 H (0.0-1.0) 10^3/uL Eos # (Auto) 0.0 (0.0-0.7) 10^3/uL Baso # (Auto) 0.0 (0.0-0.1) 10^3/uL Absolute Nucleated RBC 0.00 x10^3/uL Nucleated RBC % 0.0 /100WBC PT (9.9-12.6) secs INR (0.8-1.2) Sodium (135-145) mmol/L Potassium (3.5-5.0) mmol/L Chloride (101-111) mmol/L Carbon Dioxide (21-32) mmol/L Anion Gap (6-13) BUN (6-20) mg/dL Creatinine (0.4-1.0) mg/dL Estimated GFR (MDRD) (>89) Glucose (70-100) mg/dL Calcium (8.5-10.3) mg/dL Phosphorus (2.5-4.6) mg/dL Magnesium (1.7-2.8) mg/dL Iron (28-170) ug/dL TIBC (250-450) ug/dL % Saturation (20-50) % Transferrin (192-382) mg/dL Vitamin B12 (180-914) pg/mL Folate (5.90 - >24.8) ng/mL Urine Color YELLOW Urine Clarity CLEAR (CLEAR) Urine pH 6.0 (5.0-7.5) PH Ur Specific Chauncey 1.020 (1.002-1.030) Urine Protein TRACE (NEGATIVE) mg/dL Urine Glucose (UA) NEGATIVE (NEGATIVE) mg/dL Urine Ketones NEGATIVE (NEGATIVE) mg/dL Urine Occult Blood SMALL H (NEGATIVE) Urine Nitrite NEGATIVE (NEGATIVE) Urine Bilirubin NEGATIVE (NEGATIVE) Urine Urobilinogen 0.2 (NORMAL) (NORMAL) E.U./dL Ur Leukocyte Esterase NEGATIVE (NEGATIVE) Urine RBC 0-5 (0-5) /HPF Urine WBC 0-3 (0-5) /HPF Ur Squamous Epith Cells FEW Squamous (<= Few) Urine Bacteria None Seen (None Seen) /HPF Urine Casts 0-2 Hyaline Casts /LPF Urine Culture Comments NOT INDICATED - Current Medications Current Medications: Current Medications Generic Name Dose Route Start Last Admin Trade Name Freq PRN Reason Stop Dose Admin Acetaminophen 650 mg 07/01/20 16:54 07/05/20 00:04 Tylenol PO 650 mg Q4HR PRN Administration Pain 1 to 4 Amitriptyline HCl 25 mg 07/02/20 14:00 07/05/20 05:23 Elavil PO 25 mg TID DIONNE Administration Citalopram Hydrobromide 40 mg 07/03/20 09:00 07/04/20 09:24 Celexa PO 40 mg DAILY DIONNE Administration Acetaminophen 100 mls @ 400 mls/hr 07/03/20 19:31 07/04/20 02:33 Ofirmev IV Infused Q6HR PRN Infusion PAIN Sodium Chloride 1,000 mls @ 40 mls/hr 07/04/20 13:57 07/05/20 05:27 Normal Saline 0.9% IV 40 mls/hr .Q25H DIONNE Administration Morphine Sulfate 2 mg 07/01/20 16:54 07/04/20 00:20 Morphine (Carpuject) IVP 2 mg Q2HR PRN Administration Pain 8 to 10 Oxycodone HCl 5 mg 07/01/20 16:54 07/04/20 20:52 Roxicodone PO 5 mg Q4HR PRN Administration Pain 5 to 7 Sodium Chloride 10 ml 07/01/20 16:49 07/03/20 13:21 Normal Saline Flush 0.9% IVP 10 ml PRN PRN Administration NEEDED PER PROVIDER ORDERS Sodium Chloride 10 ml 07/01/20 17:00 07/05/20 04:13 Normal Saline Flush 0.9% IVP Not Given 0100,0900,1700 [facility] Sodium Chloride 10 ml 07/04/20 01:00 07/05/20 04:13 Normal Saline Flush 0.9% IVP Not Given 0100,0900,1700 DIONNE Impression/Plan - Problem List Problem List: Status post open reduction internal fixation left hip. She has weakness and difficulty with mobilization. She is likely to need additional assisted care post hospitalization for therapy, nutrition, and strengthening.
[2020-07-05] MEDS ORDERED: nadoloL 20 MG TABLET PO SCH (09:00)
[2020-07-05] MEDS: ACETAMINOPHEN 1,000 MG/100 ML 100 ML IV PRN (09:37)
[2020-07-05] MEDS: oxyCODONE 5 MG TABLET PO PRN ×2 (09:38→20:03)
[2020-07-05] MEDS: PRENATAL VITAMIN TABLET PO SCH (11:24)
[2020-07-05] MEDS: CITALOPRAM HYDROBROMIDE 20 MG TABLET PO SCH (11:26)
[2020-07-05] MEDS: CYANOCOBALAMIN 500 MCG TABLET PO SCH ×2 (11:27→21:13)
[2020-07-05] MEDS: FERROUS GLUCONATE 324 MG TABLET PO SCH (14:50)
--- NOTE | 2020-07-05 16:03 | PROVIDER PROGRESS NOTE ---
Assessment/Plan - Problem List (1) Closed left hip fracture Assessment/Plan: She is progressing slowly but appropriately with physical therapy. She will need SNF for PT rehab, patient gave her choices to social work and referrals were sent. Because of the changes required for managing orthostatic hypotension, she will probably be medically clear for discharge in 2 days (07/07/2020) (2) Fall Qualifiers: Encounter type: subsequent encounter Qualified Code(s): W19.XXXD - Unspecified fall, subsequent encounter Assessment/Plan: This patient was shopping at a grocery store and cannot remember how she fell w hich made syncope very likely. She had orthostatic vital signs started to be checked after her surgery and she had a 60 mm drop in systolic blood pressure yesterday. The bradycardia could be another reason for the fall, and Nadolol dose is being adjusted (3) Orthostatic hypotension Assessment/Plan: Patient had a drop of blood pressure of 60 mmHg yesterday. TUAN stockings were ordered to be put on with her SCDs yesterday and orthostatic vital sign checks are ordered to be done every shift. Today she had a small drop in systolic pressure from supine to sitting but syst BP actually recovered with standing. IV fluids were continued and will slowly be weaned to off. Anticipate that she will be medically stable for discharge to SNF for rehab for the hip surgery, about on 07/07/20 (4) Bradycardia Assessment/Plan: Patient was on nadolol 40 mg twice daily and presented with a heart rate in the low 50s. Nadolol was on hold for today and heart rate went to 60-70. The following day a lower dose of nadolol was resumed and heart rate again dropped to about 60. I explained to the pt this today. We will drop her nadolol dose even further. Continue orthostatic checks and telemetry. 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 When she presented the INR was excessive and it took 2 days for reversal of the INR into a range that was safe to undergo surgery, her hip surgery was therefore delayed by 1- 1.5 days The orthopod reported greater than normal EBL of 200 cc intraoperatively. The plan is to continue to hold the Coumadin for about 3 days then resume it and allow the INR to slowly come up to therapeutic, as she is more days post-op. (6) Anemia Assessment/Plan: Hemoglobin was 13.9 at admission which has dropped consecutively every day>> 12>>10>> 8.2>> 7.5 today. She is greater than 4 L positive and fluid balance since admission therefore part of this anemia is hemodilutional, also partly EBL intra-Op or into the hip with the trauma. We will check B12, folate levels and iron stores and replace if low. Will transfuse if hemoglobin under 7. (7) Anxiety and depression Assessment/Plan: She is on her home medications for the (8) Fever Assessment/Plan: No further fever since yesterday. The chest x-ray showed no consolidation. Blood cultures are still pending but are negative to date. No urinalysis was sent. Continue to watch and observe, she received just empiric jamil-op Ancef before orthopedic surgery. - Current Meds Current Meds: Current Medications Generic Name Dose Route Start Last Admin Trade Name Freq PRN Reason Stop Dose Admin Acetaminophen 650 mg 07/01/20 16:54 07/05/20 00:04 Tylenol PO 650 mg Q4HR PRN Administration Pain 1 to 4 Amitriptyline HCl 25 mg 07/02/20 14:00 07/05/20 14:50 Elavil PO 25 mg TID DIONNE Administration Citalopram Hydrobromide 40 mg 07/03/20 09:00 07/05/20 11:26 Celexa PO 40 mg DAILY DIONNE Administration Cyanocobalamin 500 mcg 07/05/20 11:00 07/05/20 11:27 Vitamin B-12 PO 500 mcg BID DIONNE Administration Ferrous Gluconate 324 mg 07/05/20 14:00 07/05/20 14:50 Fergon PO 324 mg DAILYWM DIONNE Administration Acetaminophen 100 mls @ 400 mls/hr 07/03/20 19:31 07/05/20 09:52 Ofirmev IV Infused Q6HR PRN Infusion PAIN Sodium Chloride 1,000 mls @ 40 mls/hr 07/04/20 13:57 07/05/20 05:27 Normal Saline 0.9% IV 40 mls/hr .Q25H DIONNE Administration Morphine Sulfate 2 mg 07/01/20 16:54 07/04/20 00:20 Morphine (Carpuject) IVP 2 mg Q2HR PRN Administration Pain 8 to 10 Oxycodone HCl 5 mg 07/01/20 16:54 07/05/20 09:38 Roxicodone PO 5 mg Q4HR PRN Administration Pain 5 to 7 Multivit/Folic Acid/Iron 1 tab 07/05/20 08:00 07/05/20 11:24 Trinatal Rx 1 PO 1 tab DAILYWM DIONNE Administration Sodium Chloride 10 ml 07/01/20 16:49 07/03/20 13:21 Normal Saline Flush 0.9% IVP 10 ml PRN PRN Administration NEEDED PER PROVIDER ORDERS Sodium Chloride 10 ml 07/01/20 17:00 07/05/20 15:56 Normal Saline Flush 0.9% IVP Not Given 0100,0900,1700 DIONNE Sodium Chloride 10 ml 07/04/20 01:00 07/05/20 15:56 Normal Saline Flush 0.9% IVP Not Given 0100,0900,1700 DIONNE - Lab Result Fish Bone Diagrams: 07/05/20 04:40 07/05/20 04:40 - Additional Planning My Orders: My Active Orders 07/04/20 18:07 Tuan Hose and Compression Devic [RC] Q8H 07/05/20 04:40 VITAMIN D,25-OH,TOTAL,IA [REFLAB] DAILYLAB 07/05/20 08:00 Vitamin [Trinatal Rx 1] 1 tab PO DAILYWM 07/05/20 08:39 Vital Signs [RC] QSHIFT 07/05/20 11:00 Cyanocobalamin [Vitamin B-12] 500 mcg PO BID 07/05/20 14:00 Ferrous Gluconate [Fergon] 324 mg PO DAILYWM 07/06/20 05:00 PT WITH INR [COAG] DAILYLAB 07/06/20 09:00 nadoloL [Corgard] 10 mg PO DAILY 07/07/20 05:00 PT WITH INR [COAG] DAILYLAB 07/08/20 05:00 PT WITH INR [COAG] DAILYLAB Subjective - Subjective Patient Reports: Resting Comfortably, No Complaints Objective Vital Signs: Vital Signs - 24 hr 07/04/20 07/04/20 07/05/20 20:53 23:43 04:55 Temperature 36.9 C 36.9 C 36.9 C Heart Rate [ 60 64 58 L Brachial] Respiratory 18 16 16 Rate Blood Pressure 113/52 L 122/55 L 128/50 L [Right Brachial artery] O2 Saturation 92 94 95 07/05/20 07/05/20 07:52 15:26 Temperature 36.8 C 36.7 C Heart Rate [ 58 L 61 Brachial] Respiratory 16 17 Rate Blood Pressure 118/72 126/60 [Right Brachial artery] O2 Saturation 94 94 Oxygen O2 Source Room air I&O (Last 24 Hrs): Intake and Output Totals x24h 07/03/20 07/04/20 07/05/20 23:59 23:59 23:59 Intake Total 300 2825 1790 Output Total 575 1175 600 Balance -275 1650 1190 General: Alert, Oriented x3 HEENT: Mucous membr. moist/pink Neck: Supple, No JVD Neuro: Alert, Non Focal Cardiovascular: Regular rate, No murmurs Respiratory: No respiratory distress, Breath sounds nml Abdomen: Soft Extremities: No edema - Results Results: Laboratory Results WBC 8.8 x10^3/uL (4.8-10.8) 07/05/20 04:40 RBC 2.45 10^6/uL (4.20-5.40) L 07/05/20 04:40 Hgb 7.5 g/dL (12.0-16.0) L 07/05/20 04:40 Hct 23.3 % (37.0-47.0) L 07/05/20 04:40 MCV 95.1 fL (81.0-99.0) 07/05/20 04:40 MCH 30.6 pg (27.0-31.0) 07/05/20 04:40 MCHC 32.2 g/dL (32.0-36.0) 07/05/20 04:40 RDW 13.0 % (12.0-15.0) 07/05/20 04:40 Plt Count 125 10^3/uL (130-450) L 07/05/20 04:40 MPV 11.0 fL (7.9-10.8) H 07/05/20 04:40 Neut # (Auto) 6.6 10^3/uL (1.5-6.6) 07/05/20 04:40 Lymph # (Auto) 1.1 10^3/uL (1.5-3.5) L 07/05/20 04:40 [place] # (Auto) 1.1 10^3/uL (0.0-1.0) H 07/05/20 04:40 Eos # (Auto) 0.0 10^3/uL (0.0-0.7) 07/05/20 04:40 Baso # (Auto) 0.0 10^3/uL (0.0-0.1) 07/05/20 04:40 Absolute Nucleated RBC 0.00 x10^3/uL 07/05/20 04:40 Nucleated RBC % 0.0 /100WBC 07/05/20 04:40 PT 14.6 secs (9.9-12.6) H 07/05/20 04:40 INR 1.3 (0.8-1.2) H 07/05/20 04:40 Sodium 137 mmol/L (135-145) 07/05/20 04:40 Potassium 3.7 mmol/L (3.5-5.0) 07/05/20 04:40 Chloride 104 mmol/L (101-111) 07/05/20 04:40 Carbon Dioxide 27 mmol/L (21-32) 07/05/20 04:40 Anion Gap 6.0 (6-13) 07/05/20 04:40 BUN 24 mg/dL (6-20) H 07/05/20 04:40 Creatinine 0.9 mg/dL (0.4-1.0) 07/05/20 04:40 Estimated GFR (MDRD) 59 (>89) L 07/05/20 04:40 Glucose 132 mg/dL (70-100) H 07/05/20 04:40 Calcium 8.1 mg/dL (8.5-10.3) L 07/05/20 04:40 Phosphorus 2.2 mg/dL (2.5-4.6) L 07/05/20 04:40 Magnesium 2.2 mg/dL (1.7-2.8) 07/05/20 04:40 Iron 22 ug/dL (28-170) L 07/05/20 04:40 TIBC 238 ug/dL (250-450) L 07/05/20 04:40 % Saturation 9 % (20-50) L 07/05/20 04:40 Transferrin 170 mg/dL (192-382) L 07/05/20 04:40 Total Bilirubin 0.9 mg/dL (0.2-1.0) 07/01/20 15:36 AST 33 IU/L (10-42) 07/01/20 15:36 ALT 28 IU/L (10-60) 07/01/20 15:36 Alkaline Phosphatase 94 IU/L (42-121) 07/01/20 15:36 Troponin I High Sens 4.1 ng/L (2.3-14.8) 07/02/20 04:50 Total Protein 7.3 g/dL (6.7-8.2) 07/01/20 15:36 Albumin 4.4 g/dL (3.2-5.5) 07/01/20 15:36 Globulin 2.9 g/dL (2.1-4.2) 07/01/20 15:36 Albumin/Globulin Ratio 1.5 (1.0-2.2) 07/01/20 15:36 Lipase 21 U/L (22-51) L 07/01/20 15:36 Vitamin B12 210 pg/mL (180-914) 07/05/20 04:40 Folate 5.84 ng/mL (5.90 - >24.8) L 07/05/20 04:40 TSH 2.77 uIU/mL (0.34-5.60) 07/02/20 04:50 Urine Color YELLOW 07/04/20 16:40 Urine Clarity CLEAR (CLEAR) 07/04/20 16:40 Urine pH 6.0 PH (5.0-7.5) 07/04/20 16:40 Ur Specific [place] 1.020 (1.002-1.030) 07/04/20 16:40 Urine Protein TRACE mg/dL (NEGATIVE) 07/04/20 16:40 Urine Glucose (UA) NEGATIVE mg/dL (NEGATIVE) 07/04/20 16:40 Urine Ketones NEGATIVE mg/dL (NEGATIVE) 07/04/20 16:40 Urine Occult Blood SMALL (NEGATIVE) H 07/04/20 16:40 Urine Nitrite NEGATIVE (NEGATIVE) 07/04/20 16:40 Urine Bilirubin NEGATIVE (NEGATIVE) 07/04/20 16:40 Urine Urobilinogen 0.2 (NORMAL) E.U./dL (NORMAL) 07/04/20 16:40 Ur Leukocyte Esterase NEGATIVE (NEGATIVE) 07/04/20 16:40 Urine RBC 0-5 /HPF (0-5) 07/04/20 16:40 Urine WBC 0-3 /HPF (0-5) 07/04/20 16:40 Ur Squamous Epith Cells FEW Squamous (<= Few) 07/04/20 16:40 Urine Bacteria None Seen /HPF (None Seen) 07/04/20 16:40 Urine Casts 0-2 Hyaline Casts /LPF 07/04/20 16:40 Urine Mucus Moderate Strands 07/01/20 17:44 Ur Microscopic Review INDICATED 07/01/20 17:44 Urine Culture Comments NOT INDICATED 07/04/20 16:40 Coronavirus (PCR) NEGATIVE 07/04/20 12:24 Blood Type O NEGATIVE 07/03/20 07:55 Blood Type Recheck O NEGATIVE 07/01/20 15:36 Antibody Screen NEGATIVE 07/01/20 17:05
[2020-07-06] MEDS: SODIUM CHLORIDE FLUSH 0.9% 10 ML SYRINGE IVP SCH ×3 (01:37→09:07)
[2020-07-06] MEDS: MORPHINE 2 MG/ML CARPUJECT IVP PRN (01:37)
[2020-07-06] MEDS: oxyCODONE 5 MG TABLET PO PRN ×2 (04:20→11:42)
[2020-07-06] MEDS: SODIUM CHLORIDE 0.9% 1,000 ML IV SCH (04:21)
[2020-07-06] MEDS: AMITRIPTYLINE 25 MG TABLET PO SCH (06:37)
[2020-07-06] MEDS: ACETAMINOPHEN 325 MG TABLET PO PRN ×2 (06:41→13:02)
[2020-07-06 06:43] LABS: BASOPHILS % (AUTO) 0.2 %; EOSINOPHILS # (AUTO) 0.1 10^3/uL (0.0-0.7); EOSINOPHILS % (AUTO) 1.7 %; HGB - HEMOGLOBIN 7.7 g/dL (12.0-16.0); LYMPHOCYTES # (AUTO) 1.7 10^3/uL (1.5-3.5); LYMPHOCYTES % (AUTO) 28.2 %; MEAN CORPUSCULAR HEMOGLOBIN 30.9 pg (27.0-31.0); MEAN CORPUSCULAR HGB CONC 32.6 g/dL (32.0-36.0); MEAN CORPUSCULAR VOLUME 94.8 fL (81.0-99.0); MEAN PLATELET VOLUME 10.1 fL (7.9-10.8); MONOCYTES # (AUTO) 0.8 10^3/uL (0.0-1.0); MONOCYTES % (AUTO) 12.6 %; NEUTROPHILS # (AUTO) 3.4 10^3/uL (1.5-6.6); NEUTROPHILS % (AUTO) 56.6 %; PLT - PLATELET COUNT 141 10^3/uL (130-450); RED BLOOD COUNT 2.49 10^6/uL (4.20-5.40); RED CELL DISTRIBUTION WIDTH 13.1 % (12.0-15.0)
[2020-07-06 06:49] LABS: INR 1.2 (0.8-1.2); PT - PROTHROMBIN TIME 13.4 secs (9.9-12.6)
[2020-07-06 06:58] LABS: CALCIUM 8.2 mg/dL (8.5-10.3); CREATININE 0.7 mg/dL (0.4-1.0)
[2020-07-06] MEDS ORDERED: nadoloL 20 MG TABLET PO SCH (09:00)
[2020-07-06] MEDS ORDERED: FOLIC ACID 1 MG TABLET PO SCH (09:00)
[2020-07-06] MEDS: CITALOPRAM HYDROBROMIDE 20 MG TABLET PO SCH (09:07)
[2020-07-06] MEDS: CYANOCOBALAMIN 500 MCG TABLET PO SCH (09:07)
[2020-07-06] MEDS: PRENATAL VITAMIN TABLET PO SCH (09:07)
[2020-07-06] MEDS: FERROUS GLUCONATE 324 MG TABLET PO SCH (09:07)
--- NOTE | 2020-07-06 11:12 | Discharge Plan ---
"Discharge Plan for SNF / [facility] - Discharge Plan And Transition Orders Problem Reviewed?: Yes Disposition: 03 SNF DC/Xfer Condition: Stable Allergies and Adverse Reactions: Allergies Allergy/AdvReac Type Severity Reaction Status Date / Time No Known Drug Allergies Allergy Verified 07/01/20 15:30 Health Concerns: Admitted after a fall while shopping. Severe orthostasis was documented here, which was probably the cause of the fall. Patient presented with a hip fracture that was successfully operated on and she started participating in PT. She had marked bradycardia and medications needed adjustment while here. She is on chronic Coumadin, and the Coumadin was on hold for the 4 days while here. Coumadin is being restarted to get a slow increase up to a therapeutic INR. Urged to SNF for further rehab with PT, before returning home. Plan of Treatment: As above. Care Goals: Improvement in symptoms and stabilization are the goals. Strengthening with PT rehab is the plan. Assessment: The patient understands and is agreeable with the plan. 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 Notify PCP of admission and forward orders to primary provider for signature. Weight on admission and: Weekly Other Notification Orders: Call PCP immediately if patient develops dyspnea, chest pain/tightness or edema. House Bowel Program: Yes Additional Bowel Program Orders: If no BM after 2 days, nurse may give M.O.M. 30ml PO PRN and/or ducolax Supp 1 VA and/or MADHURI 250mg P.O., and/or senna 1-2 tabs PO. On day 3 nurse may give repeat above order until residents constipation is resolved. Annual Influenza Vaccine (between Jun 25 and January 22): Yes Two-step PPD per [facility] [id number] or approved exception documents: Yes Treatments & Other Orders: Daily PT. Knee-high compression stockings, such as JOBST stockings: Put on in the morning, take off before bedtime. Lab Tests or X-ray Orders: Daily INR, goal is 2-3 Medication Orders: PLEASE REFER TO THE DISCHARGE MEDICATION LIST. - Medications New Prescriptions: oxyCODONE [Roxicodone] 5 mg PO Q4HR PRN #20 tablet PRN Reason: Pain 5 to 7 Acetaminophen [Tylenol] 650 mg PO Q4HR PRN #60 tablet PRN Reason: Pain 1 to 4 Morphine Inj (Carpuject) [Morphine (Carpuject)] 2 mg IVP Q6HR PRN #8 syringe PRN Reason: Pain 8 to 10 nadoloL [Corgard] 10 mg PO DAILY #15 tablet Ferrous Gluconate [Fergon] 324 mg PO DAILYWM #30 tablet Folic Acid 1 mg PO DAILY #30 tablet Vitamin [Trinatal Rx 1] 1 tab PO DAILYWM #30 tablet - Diet Type: No added salt Texture: Regular Liquids: Thin May have monthly special meal: Yes - Therapies | Activity Therapy: Evaluation | Treat if indicated: PT Rehabilitation Potential: Maximize functional status Activity: Activity as Tolerated Weight Bearing: Full Weight Assistance Devices: Walker Follow Up: Follow-up with PCP, Dr Nic Sifuentes, after discharge from SNF."
--- NOTE | 2020-07-06 11:50 | DISCHARGE SUMMARY ---
Discharge Summary Admit Date: 07/01/20 Discharge Date: 07/06/20 Discharging Provider: Dr Veronica Sanchez Primary Care Provider: Dr Nic Sifuentes, Dr Alba Dyson Code Status: Attempt Resuscitation Condition at Discharge: Stable Discharge Disposition: SNF DC/Xfer Discharge Facility Name: [facility] History of Present Illness: From the admission H&P of Dr. 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 History is limited as the patient is a little dazed after receiving morphine in the emergency department. She states she was at the grocery store today holding a cart when she fell. She cannot really recall what happened but she denied any loss of consciousness or syncope. She denied feeling dizzy or lightheaded or any palpitations prior to the event. She states that she lives alone and is independent with her ADLs. She normally will use a cane to ambulate. She still drives. She denies any prior history of heart disease including arrhythmias, heart failure, coronary artery disease. 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 She currently complains of pain at the left hip. She denies any numbness in her lower extremities. Reports no nausea or vomiting. Denies abdominal pain, dysuria, urgency, hematuria. She denies a history of renal disease, diabetes, hypertension. She is unable to tell me what medications she takes except for the warfarin. She initially told me that she does not have any chest pain including with exertion. I asked her if she gets chest pain when she walks a flight of stairs and she initially said no. Later she stated that she will occasionally get chest pain always not very often. She reports last episode was a few days ago when she was just sitting around. She could not tell me if it was sharp or pressure-like in nature. She currently reports no chest pain. She also reports no dyspnea. She reports no lower extremity edema. In the emergency department, she is found to be afebrile temperature of 36.6 C. Her heart rate was in the 50s and this was sinus bradycardia on telemetry. Her blood pressure is 115/63. She was not tachypneic and saturating well on room ai r. Her labs were significant for an INR of 4.3. Her creatinine was slightly elevated at 1.2. Her troponin was within normal limits. Her EKG showed a sinus bradycardia left anterior fascicular block. No prior EKG to compare to. She underwent imaging which was significant for a left femoral neck fracture. Given the above findings, medicine was consulted for admission. I did discuss goals of care with the patient and she would like to be a full code. - HOSPITAL COURSE Hospital Course: (1) Closed left hip fracture She underwent successful surgery and then progressed with PT slowly, because of the changes required for managing orthostatic hypotension. She was discharged to a SNF for PT rehab in stable condition. The patient will need to be started on Fosamax in approximately 4 weeks, by the PCP, after healing of the surgical bone site. (2) S/P ORIF Her orthopedic surgery was done on the 3rd day of admission, due to very elevated INR, which was slow to correct to <1.8, using vit K and FFP multiple times. She then had successful hip surgery by Dr Quiroz of Orthopedics. (3) Fall This patient was shopping at a grocery store and cannot remember how she fell, which made syncope very likely. We undertook work-up for presumed syncope. (4) Orthostatic hypotension She had orthostatic vital signs checked after her surgery and she had a documented 60 mmHg drop in systolic blood pressure. Her BP meds were put on hold, she got iv fluids up until discharge, and compression stockings were prescribed for use and continued for after discharge. (5) Bradycardia Patient was on nadolol 40 mg twice daily and presented with a heart rate in the low 50s. Nadolol was on hold for 1day and heart rate went to 60-70. The following day a lower dose of nadolol was resumed and heart rate again dropped to about 60. The bradycardia could have been another reason for the fall, and Nadolol dosing was significantly decreased at discharge from 40 mg bid pre- hospitalization to 10 mg once a day in a.m. 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 When she presented the INR was excessive at 2.7, and it took 3 days for reversal of the INR into a range that was safe to undergo surgery, her hip surgery was therefore delayed. The orthopedist reported greater than usual EBL of 200-300 cc intraoperatively. We did not resume Coumadin until day of discharge, then ordered her old dose to resume to allow the INR to slowly come up to therapeutic range. Daily INR blood checks were ordered to be done at the SNF, to achieve a target INR of 2 to 3. (7) Anemia Hemoglobin was 13.9 at admission which dropped consecutively every day>> 12>>10>> 8.2>> 7.5. She was greater than 4 L positive in fluid balance at that time, therefore part of this anemia was hemodilutional, also partly EBL intra-Op or loss into the hip with the trauma. At discharge, Hgb was 7.7. (8) Folate deficiency Blood levels were checked and she was low in Folate, required oral replacement, which was continued at discharge. (9) Iron deficiency Blood levels were checked and she was low in Iron stores, required oral replacement, which was continued at discharge. (10) Anxiety and depression She was kept on her home medications for this. (11) Fever During the 3 day delay in hip surgery, she had a fever once. The chest x-ray showed no consolidation. Blood cultures were negative to date. The urinalysis was unremarkable. It was felt to be from possible atelectasis, in her bed-bound position. - ALLERGIES Allergies/Adverse Reactions: Allergies Allergy/AdvReac Type Severity Reaction Status Date / Time No Known Drug Allergies Allergy Verified 07/01/20 15:30 - MEDICATIONS Home Medications: Ambulatory Orders Medication Instructions Recorded Confirmed Amitriptyline [Elavil] 25 mg PO TID 07/02/20 07/02/20 Citalopram Hydrobromide 40 mg PO DAILY 07/02/20 07/02/20 [Citalopram HBr] Warfarin [Coumadin] 2.5 mg PO .07/02/20 07/02/20 Warfarin [Coumadin] 5 mg PO .Wednesday07/02/20 07/02/20 Acetaminophen [Tylenol] 650 mg PO Q4HR PRN #60 tablet 07/06/20 Ferrous Gluconate [Fergon] 324 mg PO DAILYWM #30 tablet 07/06/20 Folic Acid 1 mg PO DAILY #30 tablet 07/06/20 Morphine Sulfate [Morphine Sulfate 10 mg PO Q12H PRN #6 cap.er.pel 07/06/20 ER] Vitamin [Trinatal Rx 1] 1 tab PO DAILYWM #30 tablet 07/06/20 nadoloL [Corgard] 10 mg PO DAILY #15 tablet 07/06/20 oxyCODONE [Roxicodone] 5 mg PO Q4HR PRN #20 tablet 07/06/20 - PHYSICAL EXAM AT DISCHARGE General Appearance: positive: No acute distress, Alert Eyes Bilateral: positive: EOMI ENT: positive: No signs of dehydration Neck: positive: Nml inspection, No JVD Respiratory: positive: No respiratory distress, Breath sounds nml Cardiovascular: positive: Regular rate & rhythm, No murmur Abdomen: positive: Nml bowel sounds, No distention, Other (Obese with pannus) Skin: positive: Color nml, Warm, Dry Extremities: positive: No pedal edema Neurologic/Psychiatric: positive: Oriented x3 (Non-focal exam.) - LABS Result Diagrams: 07/06/20 06:00 07/06/20 06:00 - DIAGNOSTIC IMAGING Diagnostic Imaging Results: Final report reviewed - QUALITY (Female Hip Fx Only) Was patient sent home on osteoporosis medication?: No (The patient will need to be started on Fosamax in ~4 weeks by PCP) - FOLLOW UP Follow Up: This will be determined after her stay at SNF. - TIME SPENT Time Spent in Discharge (Minutes): 60
[2020-07-06] MEDS ORDERED: WARFARIN 2.5 MG TABLET PO SCH (12:00)
[2020-07-06 13:02] VITALS: BP 133/78
[2020-07-08] MEDS ORDERED: WARFARIN 5 MG TABLET PO SCH (09:00)
== END 2020-07-06 13:45 | DRG 482 ==
LOC: ED 15:20 → MS2 16:49
PROVIDERS: ADMIT Internal Medicine; ATTEND Internal Medicine
PROC: 30233K1 Transfusion of Nonautologous Frozen Plasma into Peripheral Vein, Percutaneous Approach (ICD-10-PCS; 2020-07-02)
PROC: 0QS706Z Reposition Left Upper Femur with Intramedullary Internal Fixation Device, Open Approach (ICD-10-PCS; principal; 2020-07-03 11:00)
DX: S72.142A Displaced intertrochanteric fracture of left femur, initial encounter for closed fracture (principal); W18.30XA Fall on same level, unspecified, initial encounter; Y92.512 Supermarket, store or market as the place of occurrence of the external cause; Z86.718 Personal history of other venous thrombosis and embolism; M25.562 Pain in left knee; M54.6 Pain in thoracic spine; Z79.01 Long term (current) use of anticoagulants; R00.1 Bradycardia, unspecified; I44.4 Left anterior fascicular block; I95.1 Orthostatic hypotension; D64.9 Anemia, unspecified; E53.8 Deficiency of other specified B group vitamins; E61.1 Iron deficiency; F41.9 Anxiety disorder, unspecified; F32.9 Major depressive disorder, single episode, unspecified; R50.9 Fever, unspecified; Z87.891 Personal history of nicotine dependence; R79.1 Abnormal coagulation profile; E66.9 Obesity, unspecified; Z68.30 Body mass index [BMI] 30.0-30.9, adult; Z20.828 Contact with and (suspected) exposure to other viral communicable diseases
CPT/HCPCS: 36415; 70450; 71045; 72125; 72128; 73502; 73560; 80048; 80053; 81001; 82306; 82607; 82746; 83540; 83690; 83735; 84100; 84443; 84466; 84484; 85025; 85610; 86850; 86900; 86901; 87040; 93005; 93306; 96374; 97162; 97166; 97530; 99284; 99285; A9270; J0131; J1170; J7120; J8499; P9017; U0004; 81003; 87086

== ENCOUNTER 2020-08-22 07:00 | Outpatient (CLI) | payer MEDICARE, BC, OTHER ==
--- NOTE | 2020-08-22 18:14 | XRAY Report ---
PROCEDURE: Hip 1 View LT INDICATIONS: LEFT HIP FRACTURE TECHNIQUE: Acute views of the hip were acquired. COMPARISON: 07/01/2020 FINDINGS: Bones: Post surgical changes compatible with ORIF of left intertrochanteric femur fracture. There is anatomic alignment of fracture fragments. Orthopedic hardware is intact. No lucencies at the bone on interface. No fractures or dislocations. No suspicious bony lesions. The visualized pelvic ring ap pears intact. Soft tissues: No suspicious soft tissue calcifications or masses. IMPRESSION: Expected postsurgical change for ORIF of intertrochanteric left femur fracture. Reviewed by: Estefania Andrade MD, PhD on 08/22/2020 6:13 PM PDT Approved by: Estefania Andrade MD, PhD on 08/22/2020 6:13 PM PDT Station ID: [id number]
== END 2020-08-22 23:59 | disposition home or self-care (01) ==
LOC: DI.WCP 07:00
PROVIDERS: ATTEND Physician Assistant
DX: S72.142D Displaced intertrochanteric fracture of left femur, subsequent encounter for closed fracture with routine healing (principal)